=== PATIENT | female | born 1960 | race Caucasian/White ===

== ENCOUNTER → 2020-07-11 | Outpatient (REF) | payer OTHER ==
[2020-07-11 22:19] LABS: H PYLORI QUALITATIVE IgG NEGATIVE (NEGATIVE)
== END ==
LOC: M LAB REF 16:12
PROVIDERS: ATTEND Nurse Practitioner Adult Health
DX: R10.9 Unspecified abdominal pain (principal)

== ENCOUNTER 2023-04-28 08:26 | Inpatient (IN) | payer OTHER, SELFPAY ==
[~2023-04-28] VITALS: Ht 165.1 cm; Wt 65.5 kg
[2023-04-28] MEDS ORDERED: CIPR-250 PO (08:39)
[2023-04-28 09:21] LABS: BASO # 0.1 10^3/uL (0.0-0.2); BASO % 0.3 % (0.0-1.0); EOS # 0.1 10^3/uL (0.0-0.5); EOS % 0.3 % (0.0-3.0); HEMATOCRIT 38.9 % (36.0-47.0); HEMOGLOBIN 12.9 g/dl (12.0-15.5); LYMPH # 1.4 10^3/uL (1.5-5.0); LYMPH % 6.8 % (24.0-44.0); MEAN CORPUSCULAR HEMOGLOBIN 29.7 pg (27.0-33.0); MEAN CORPUSCULAR HGB CONC 33.2 g/dl (32.0-36.5); MEAN CORPUSCULAR VOLUME 89.6 fl (80.0-96.0); MONO # 1.3 10^3/uL (0.0-0.8); MONO % 6.5 % (2.0-8.0); NEUTROPHILS # 17.3 10^3/uL (1.5-8.5); NEUTROPHILS % 85.4 % (36.0-66.0); PLATELET COUNT, AUTOMATED 469 10^3/uL (150-450); RED BLOOD COUNT 4.34 10^6/uL (4.00-5.40); WHITE BLOOD COUNT 20.3 10^3/uL (4.0-10.0)
[2023-04-28 09:51] LABS: LIPASE 23 U/L (12-53)
[2023-04-28 09:53] LABS: ALBUMIN 2.5 G/DL (3.2-5.2); ALKALINE PHOSPHATASE 104 U/L (46-116); ALT/SGPT 21 U/L (7.0-40); AST/SGOT 33 U/L (<34); BILIRUBIN,DIRECT 0.1 MG/DL (<0.4); BILIRUBIN,TOTAL 0.3 MG/DL (0.3-1.2); TOTAL PROTEIN 6.4 G/DL (5.7-8.2)
[2023-04-28 10:16] LABS: RSV AMPLIFICATION NEGATIVE (NEGATIVE)
[2023-04-28 10:40] LABS: MAGNESIUM LEVEL 1.9 MG/DL (1.8-2.4)
[2023-04-28] MEDS ORDERED: ISOVUE-370 76% 100ML VIAL As Ordered ONE (10:58)
[2023-04-28] MEDS ORDERED: PIPERACILLIN/TAZOBACTAM SOD 3.375 GM in D5W MINI-BAG PLUS 50 ML IV ONE (12:05)
[2023-04-28 12:47] LABS: BLOOD UREA NITROGEN 14 MG/DL (9-23); CALCIUM LEVEL 8.7 MG/DL (8.3-10.6); CARBON DIOXIDE LEVEL 24 MMOL/L (20-31); CHLORIDE LEVEL 104 MMOL/L (98-107); CREATININE FOR GFR 0.82 MG/DL (0.55-1.30); GLOMERULAR FILTRATION RATE > 60.0 (>45); GLUCOSE, FASTING 85 MG/DL (74-106); POTASSIUM SERUM 5.2 MMOL/L (3.5-5.1); SODIUM LEVEL 138 MMOL/L (136-145)
[2023-04-28] MEDS ORDERED: MED REC IN PROGRESS XX SCH (13:25)
[2023-04-28] MEDS: LR 1,000 ML IV SCH ×2 (13:27→21:50)
[2023-04-28] MEDS ORDERED: HOME MED LIST COMPLETE! XX SCH (13:35)
[2023-04-28] MEDS ORDERED: LORazepam 2 MG TAB PO PRN (13:45)
[2023-04-28] MEDS: MULTIVITAMIN -ADULT INJECTION 10 ML, THIAMINE INJection 100 MG, FOLIC ACID 1 MG in NS 1... IV SCH (16:08)
[2023-04-28 18:05] VITALS: BP 110/68; TEMP 97.5; O2SAT 95
[2023-04-28 18:15] VITALS: BP 110/68
[2023-04-28] MEDS: PIPERACILLIN/TAZOBACTAM SOD 3.375 GM in D5W MINI-BAG PLUS 50 ML IV SCH ×2 (18:21→23:45)
[2023-04-28] MEDS: KETOROLAC 30 MG/ML 1ML VIAL IV PRN (18:22)
[2023-04-28 19:51] VITALS: BP 90/50; TEMP 98.6; O2SAT 95
[2023-04-28] MEDS ORDERED: NS 1,000 ML IV SCH (20:20)
[2023-04-28] MEDS: HEPARIN SOD (PORCINE) 5000UNITS/ML 1ML VIAL/SYRINGE SC SCH (21:50)
[2023-04-28 21:54] VITALS: BP 110/70
[2023-04-28 22:00] VITALS: BP 110/70
[2023-04-29] VITALS (8 sets, daily range): BP systolic 88–120; BP diastolic 50–72; TEMP 98.1–99.5; O2SAT 92–97
[2023-04-29] MEDS: PIPERACILLIN/TAZOBACTAM SOD 3.375 GM in D5W MINI-BAG PLUS 50 ML IV SCH ×4 (05:20→23:34)
[2023-04-29 06:14] LABS: BASO # 0.1 10^3/uL (0.0-0.2); BASO % 0.3 % (0.0-1.0); EOS # 0.2 10^3/uL (0.0-0.5); EOS % 1.6 % (0.0-3.0); HEMATOCRIT 33.3 % (36.0-47.0); LYMPH # 1.3 10^3/uL (1.5-5.0); LYMPH % 8.6 % (24.0-44.0); MEAN CORPUSCULAR VOLUME 90.7 fl (80.0-96.0); MONO # 1.2 10^3/uL (0.0-0.8); MONO % 7.7 % (2.0-8.0); NEUTROPHILS # 12.2 10^3/uL (1.5-8.5); NEUTROPHILS % 81.3 % (36.0-66.0); PLATELET COUNT, AUTOMATED 377 10^3/uL (150-450); RED BLOOD COUNT 3.67 10^6/uL (4.00-5.40)
[2023-04-29 06:30] LABS: BLOOD UREA NITROGEN 14 MG/DL (9-23); CALCIUM LEVEL 8.1 MG/DL (8.3-10.6); CARBON DIOXIDE LEVEL 24 MMOL/L (20-31); CHLORIDE LEVEL 107 MMOL/L (98-107); CREATININE FOR GFR 0.79 MG/DL (0.55-1.30); GLOMERULAR FILTRATION RATE > 60.0 (>45); GLUCOSE, FASTING 71 MG/DL (74-106); POTASSIUM SERUM 4.2 MMOL/L (3.5-5.1); SODIUM LEVEL 139 MMOL/L (136-145)
[2023-04-29] MEDS: LR 1,000 ML IV SCH ×2 (08:35→18:55)
[2023-04-29] MEDS: HEPARIN SOD (PORCINE) 5000UNITS/ML 1ML VIAL/SYRINGE SC SCH ×2 (08:35→19:28)
[2023-04-29] MEDS ORDERED: LIDOCAINE 1% MDV 20ML VIAL As Ordered ONE (11:39)
[2023-04-29] MEDS ORDERED: SIMETHICONE 80MG CHEW TAB PO PRN (13:30)
[2023-04-29] MEDS: PANTOPRAZOLE 40MG VIAL IV SCH (14:18)
[2023-04-29] MEDS: MULTIVITAMIN -ADULT INJECTION 10 ML, THIAMINE INJection 100 MG, FOLIC ACID 1 MG in NS 1... IV SCH (17:14)
[2023-04-29] MEDS: ACETAMINOPHEN TAB 650MG DOSE (2X325MG) PO PRN (19:27)
[2023-04-29] MEDS: NICOTINE 14 MG/24 HR TRANSDERMAL TD SCH (21:00)
[2023-04-29] MEDS ORDERED: NS 1,000 ML IV ONE (22:05)
[2023-04-29] MEDS: KETOROLAC 30 MG/ML 1ML VIAL IV PRN (23:30)
[2023-04-30] VITALS (13 sets, daily range): BP systolic 90–116; BP diastolic 54–72; TEMP 97.7–100.9; O2SAT 94–98
[2023-04-30] MEDS: PIPERACILLIN/TAZOBACTAM SOD 3.375 GM in D5W MINI-BAG PLUS 50 ML IV SCH ×4 (05:17→23:04)
[2023-04-30 05:44] LABS: BASO # 0.1 10^3/uL (0.0-0.2); BASO % 0.4 % (0.0-1.0); EOS # 0.2 10^3/uL (0.0-0.5); EOS % 1.4 % (0.0-3.0); HEMATOCRIT 32.1 % (36.0-47.0); HEMOGLOBIN 10.5 g/dl (12.0-15.5); LYMPH # 1.1 10^3/uL (1.5-5.0); LYMPH % 8.3 % (24.0-44.0); MEAN CORPUSCULAR HEMOGLOBIN 29.7 pg (27.0-33.0); MEAN CORPUSCULAR HGB CONC 32.7 g/dl (32.0-36.5); MEAN CORPUSCULAR VOLUME 90.7 fl (80.0-96.0); MONO # 1.1 10^3/uL (0.0-0.8); MONO % 8.1 % (2.0-8.0); NEUTROPHILS # 10.8 10^3/uL (1.5-8.5); NEUTROPHILS % 81.1 % (36.0-66.0); PLATELET COUNT, AUTOMATED 384 10^3/uL (150-450); RED BLOOD COUNT 3.54 10^6/uL (4.00-5.40); WHITE BLOOD COUNT 13.3 10^3/uL (4.0-10.0)
[2023-04-30 06:06] LABS: BLOOD UREA NITROGEN 13 MG/DL (9-23); CALCIUM LEVEL 7.9 MG/DL (8.3-10.6); CARBON DIOXIDE LEVEL 24 MMOL/L (20-31); CHLORIDE LEVEL 110 MMOL/L (98-107); CREATININE FOR GFR 0.71 MG/DL (0.55-1.30); GLOMERULAR FILTRATION RATE > 60.0 (>45); GLUCOSE, FASTING 81 MG/DL (74-106); POTASSIUM SERUM 4.1 MMOL/L (3.5-5.1); SODIUM LEVEL 140 MMOL/L (136-145)
[2023-04-30] MEDS: LR 1,000 ML IV SCH ×2 (07:13→14:34)
[2023-04-30] MEDS: HEPARIN SOD (PORCINE) 5000UNITS/ML 1ML VIAL/SYRINGE SC SCH ×2 (08:52→20:21)
[2023-04-30] MEDS: PANTOPRAZOLE 40MG VIAL IV SCH (08:52)
[2023-04-30] MEDS: ACETAMINOPHEN TAB 650MG DOSE (2X325MG) PO PRN ×2 (09:48→20:20)
[2023-04-30] MEDS: KETOROLAC 30 MG/ML 1ML VIAL IV PRN (14:56)
[2023-04-30] MEDS ORDERED: SIMETHICONE 80MG CHEW TAB PO ONE (15:00)
[2023-04-30] MEDS ORDERED: NS 1,000 ML IV ONE (15:45)
[2023-04-30] MEDS: MIDODRINE 5 MG TAB PO SCH (15:52)
[2023-04-30] MEDS ORDERED: ACETAMINOPHEN 500 MG TAB PO ONE (16:00)
[2023-04-30] MEDS: NICOTINE 14 MG/24 HR TRANSDERMAL TD SCH (20:13)
[2023-05-01] VITALS (11 sets, daily range): BP systolic 106–123; BP diastolic 52–86; TEMP 98.1–100.3; O2SAT 92–94
[2023-05-01] MEDS: ACETAMINOPHEN TAB 650MG DOSE (2X325MG) PO PRN (04:08)
[2023-05-01] MEDS: PIPERACILLIN/TAZOBACTAM SOD 3.375 GM in D5W MINI-BAG PLUS 50 ML IV SCH ×4 (05:00→23:03)
[2023-05-01 06:11] LABS: BASO # 0.1 10^3/uL (0.0-0.2); BASO % 0.4 % (0.0-1.0); EOS # 0.2 10^3/uL (0.0-0.5); EOS % 1.3 % (0.0-3.0); HEMATOCRIT 33.4 % (36.0-47.0); HEMOGLOBIN 11.1 g/dl (12.0-15.5); LYMPH # 1.4 10^3/uL (1.5-5.0); LYMPH % 10.1 % (24.0-44.0); MEAN CORPUSCULAR HEMOGLOBIN 30.3 pg (27.0-33.0); MEAN CORPUSCULAR HGB CONC 33.2 g/dl (32.0-36.5); MEAN CORPUSCULAR VOLUME 91.3 fl (80.0-96.0); MONO % 7.2 % (2.0-8.0); NEUTROPHILS # 11.3 10^3/uL (1.5-8.5); NEUTROPHILS % 80.4 % (36.0-66.0); PLATELET COUNT, AUTOMATED 433 10^3/uL (150-450); RED BLOOD COUNT 3.66 10^6/uL (4.00-5.40); WHITE BLOOD COUNT 14.1 10^3/uL (4.0-10.0)
[2023-05-01 06:38] LABS: BLOOD UREA NITROGEN 14 MG/DL (9-23); CALCIUM LEVEL 7.7 MG/DL (8.3-10.6); CARBON DIOXIDE LEVEL 24 MMOL/L (20-31); CHLORIDE LEVEL 111 MMOL/L (98-107); CREATININE FOR GFR 0.75 MG/DL (0.55-1.30); GLOMERULAR FILTRATION RATE > 60.0 (>45); GLUCOSE, FASTING 81 MG/DL (74-106); POTASSIUM SERUM 3.9 MMOL/L (3.5-5.1); SODIUM LEVEL 144 MMOL/L (136-145)
[2023-05-01] MEDS: HEPARIN SOD (PORCINE) 5000UNITS/ML 1ML VIAL/SYRINGE SC SCH ×2 (09:00→20:05)
[2023-05-01] MEDS: PANTOPRAZOLE 40MG VIAL IV SCH (09:36)
[2023-05-01] MEDS: MIDODRINE 5 MG TAB PO SCH ×3 (09:36→16:58)
[2023-05-01] MEDS: KETOROLAC 30 MG/ML 1ML VIAL IV PRN ×2 (09:37→19:00)
[2023-05-01] MEDS: ONDANSETRON 4MG 2ML VIAL IV PRN (16:05)
[2023-05-01] MEDS ORDERED: ISOVUE-370 76% 100ML VIAL As Ordered ONE (17:57)
[2023-05-01] MEDS ORDERED: NS 1,000 ML IV SCH (18:00)
[2023-05-01] MEDS: NICOTINE 14 MG/24 HR TRANSDERMAL TD SCH (20:01)
[2023-05-02] VITALS (8 sets, daily range): BP systolic 106–147; BP diastolic 55–90; TEMP 97.5–100.6; O2SAT 93–98
[2023-05-02] MEDS: PIPERACILLIN/TAZOBACTAM SOD 3.375 GM in D5W MINI-BAG PLUS 50 ML IV SCH (05:09)
[2023-05-02] MEDS: ACETAMINOPHEN TAB 650MG DOSE (2X325MG) PO PRN ×3 (05:10→20:49)
[2023-05-02 06:26] LABS: BASO # 0.1 10^3/uL (0.0-0.2); BASO % 0.5 % (0.0-1.0); EOS # 0.2 10^3/uL (0.0-0.5); EOS % 1.8 % (0.0-3.0); HEMATOCRIT 30.9 % (36.0-47.0); HEMOGLOBIN 10.3 g/dl (12.0-15.5); LYMPH # 1.3 10^3/uL (1.5-5.0); LYMPH % 10.6 % (24.0-44.0); MEAN CORPUSCULAR HEMOGLOBIN 29.9 pg (27.0-33.0); MEAN CORPUSCULAR HGB CONC 33.3 g/dl (32.0-36.5); MEAN CORPUSCULAR VOLUME 89.6 fl (80.0-96.0); MONO % 8.5 % (2.0-8.0); NEUTROPHILS # 9.4 10^3/uL (1.5-8.5); NEUTROPHILS % 78.2 % (36.0-66.0); PLATELET COUNT, AUTOMATED 440 10^3/uL (150-450); RED BLOOD COUNT 3.45 10^6/uL (4.00-5.40)
[2023-05-02 06:58] LABS: BLOOD UREA NITROGEN 11 MG/DL (9-23); CALCIUM LEVEL 7.5 MG/DL (8.3-10.6); CARBON DIOXIDE LEVEL 26 MMOL/L (20-31); CHLORIDE LEVEL 108 MMOL/L (98-107); CREATININE FOR GFR 0.74 MG/DL (0.55-1.30); GLOMERULAR FILTRATION RATE > 60.0 (>45); GLUCOSE, FASTING 103 MG/DL (74-106); POTASSIUM SERUM 3.5 MMOL/L (3.5-5.1); SODIUM LEVEL 140 MMOL/L (136-145)
[2023-05-02] MEDS: HEPARIN SOD (PORCINE) 5000UNITS/ML 1ML VIAL/SYRINGE SC SCH ×2 (08:13→20:50)
[2023-05-02] MEDS: MIDODRINE 5 MG TAB PO SCH ×3 (08:13→15:32)
[2023-05-02] MEDS: ERTAPENEM SODIUM 1 GM in NS MINI-BAG PLUS 50 ML IV SCH (08:19)
[2023-05-02] MEDS ORDERED: VITAMIN A & D OINTMENT 42.5GM TOP PRN (08:20)
[2023-05-02] MEDS: SIMETHICONE 80MG CHEW TAB PO PRN ×3 (08:59→21:44)
[2023-05-02] MEDS: ONDANSETRON 4MG 2ML VIAL IV PRN (14:18)
[2023-05-02] MEDS ORDERED: NS 1,000 ML IV ONE (14:40)
[2023-05-02 14:57] LABS: IONIZED CALCIUM 4.4 MG/DL (4.5-5.3)
[2023-05-02 15:27] LABS: ALBUMIN 1.8 G/DL (3.2-5.2); ALKALINE PHOSPHATASE 84 U/L (46-116); ALT/SGPT 17 U/L (7.0-40); AST/SGOT 14 U/L (<34); BILIRUBIN,DIRECT 0.2 MG/DL (<0.4); BILIRUBIN,TOTAL 0.3 MG/DL (0.3-1.2); BLOOD UREA NITROGEN 10 MG/DL (9-23); CARBON DIOXIDE LEVEL 26 MMOL/L (20-31); CHLORIDE LEVEL 109 MMOL/L (98-107); CREATININE FOR GFR 0.71 MG/DL (0.55-1.30); GLOMERULAR FILTRATION RATE > 60.0 (>45); GLUCOSE, FASTING 94 MG/DL (74-106); MAGNESIUM LEVEL 1.6 MG/DL (1.8-2.4); POTASSIUM SERUM 3.6 MMOL/L (3.5-5.1); SODIUM LEVEL 140 MMOL/L (136-145); TOTAL PROTEIN 5.1 G/DL (5.7-8.2)
[2023-05-02] MEDS ORDERED: MAG SULF 1GM/100ML (MAG RUN) 1 GM in IV 1 EA IV ONE (17:00)
[2023-05-02] MEDS: NICOTINE 14 MG/24 HR TRANSDERMAL TD SCH (20:43)
[2023-05-03] VITALS (8 sets, daily range): BP systolic 121–135; BP diastolic 0–85; TEMP 98.8–101.2; O2SAT 90–96
[2023-05-03] MEDS: ACETAMINOPHEN TAB 650MG DOSE (2X325MG) PO PRN ×2 (02:51→16:53)
[2023-05-03 06:20] LABS: BASO # 0.1 10^3/uL (0.0-0.2); BASO % 0.7 % (0.0-1.0); EOS # 0.2 10^3/uL (0.0-0.5); EOS % 1.7 % (0.0-3.0); HEMATOCRIT 35.2 % (36.0-47.0); HEMOGLOBIN 11.5 g/dl (12.0-15.5); LYMPH # 1.3 10^3/uL (1.5-5.0); LYMPH % 12.3 % (24.0-44.0); MEAN CORPUSCULAR HEMOGLOBIN 29.6 pg (27.0-33.0); MEAN CORPUSCULAR HGB CONC 32.7 g/dl (32.0-36.5); MEAN CORPUSCULAR VOLUME 90.7 fl (80.0-96.0); MONO # 0.8 10^3/uL (0.0-0.8); MONO % 7.1 % (2.0-8.0); NEUTROPHILS # 8.3 10^3/uL (1.5-8.5); NEUTROPHILS % 77.6 % (36.0-66.0); RED BLOOD COUNT 3.88 10^6/uL (4.00-5.40); WHITE BLOOD COUNT 10.7 10^3/uL (4.0-10.0)
[2023-05-03 06:22] LABS: PLATELET COUNT, AUTOMATED 549 10^3/uL (150-450)
[2023-05-03 06:37] LABS: BLOOD UREA NITROGEN 9 MG/DL (9-23); CALCIUM LEVEL 8.3 MG/DL (8.3-10.6); CARBON DIOXIDE LEVEL 26 MMOL/L (20-31); CHLORIDE LEVEL 107 MMOL/L (98-107); CREATININE FOR GFR 0.68 MG/DL (0.55-1.30); GLOMERULAR FILTRATION RATE > 60.0 (>45); GLUCOSE, FASTING 78 MG/DL (74-106); POTASSIUM SERUM 3.7 MMOL/L (3.5-5.1); SODIUM LEVEL 140 MMOL/L (136-145)
[2023-05-03] MEDS: HEPARIN SOD (PORCINE) 5000UNITS/ML 1ML VIAL/SYRINGE SC SCH ×2 (09:26→20:26)
[2023-05-03] MEDS: MIDODRINE 5 MG TAB PO SCH ×3 (09:27→16:53)
[2023-05-03] MEDS: LR 1,000 ML IV SCH ×2 (09:27→20:26)
[2023-05-03] MEDS: ERTAPENEM SODIUM 1 GM in NS MINI-BAG PLUS 50 ML IV SCH (09:28)
[2023-05-03] MEDS: SIMETHICONE 80MG CHEW TAB PO SCH ×4 (09:39→20:26)
[2023-05-03] MEDS ORDERED: GLUCOSE 4GM CHEW TABLET PO PRN (12:15)
[2023-05-03] MEDS ORDERED: GLUCAGON INJ 1MG VIAL SC PRN (12:15)
[2023-05-03] MEDS ORDERED: DEXTROSE 50% 50ML SYRINGE IV PRN (12:15)
[2023-05-03] MEDS: LACTOBACILLUS ACIDOPHILUS CAP (BACID) PO SCH ×3 (12:22→20:26)
[2023-05-03] MEDS: KETOROLAC 30 MG/ML 1ML VIAL IV PRN (12:33)
[2023-05-03] MEDS ORDERED: LIDOCAINE 1% MDV 20ML VIAL As Ordered ONE (14:00)
[2023-05-03] MEDS ORDERED: ONDANSETRON 4MG 2ML VIAL As Ordered ONE (14:38)
[2023-05-03] MEDS: ONDANSETRON 4MG 2ML VIAL IV PRN (14:45)
[2023-05-03] MEDS ORDERED: KETOROLAC 30 MG/ML 1ML VIAL IV ONE (15:50)
[2023-05-03] MEDS: NICOTINE 14 MG/24 HR TRANSDERMAL TD SCH (20:27)
[2023-05-03] MEDS ORDERED: ISOVUE-370 76% 100ML VIAL As Ordered ONE (21:35)
[2023-05-03] MEDS ORDERED: VANCOMYCIN HCL 750 MG, VIAL MATE ADAPTER 1 EACH in D5W 250 ML IV ONE ×2 (22:00→23:00)
[2023-05-04] VITALS (9 sets, daily range): BP systolic 112–150; BP diastolic 74–92; TEMP 97.7–102.2; O2SAT 89–97
[2023-05-04] MEDS ORDERED: VANCOMYCIN HCL 1,000 MG, VIAL MATE ADAPTER 1 EACH in D5W 250 ML IV SCH (05:00)
[2023-05-04] MEDS: ONDANSETRON 4MG 2ML VIAL IV PRN ×2 (05:30→12:20)
[2023-05-04 05:59] LABS: HEMATOCRIT 35.4 % (36.0-47.0); HEMOGLOBIN 11.6 g/dl (12.0-15.5); MEAN CORPUSCULAR HEMOGLOBIN 29.7 pg (27.0-33.0); MEAN CORPUSCULAR HGB CONC 32.8 g/dl (32.0-36.5); MEAN CORPUSCULAR VOLUME 90.5 fl (80.0-96.0); PLATELET COUNT, AUTOMATED 569 10^3/uL (150-450); RED BLOOD COUNT 3.91 10^6/uL (4.00-5.40); WHITE BLOOD COUNT 6.4 10^3/uL (4.0-10.0)
[2023-05-04 06:21] LABS: BLOOD UREA NITROGEN 10 MG/DL (9-23); CALCIUM LEVEL 7.7 MG/DL (8.3-10.6); CARBON DIOXIDE LEVEL 26 MMOL/L (20-31); CHLORIDE LEVEL 107 MMOL/L (98-107); CREATININE FOR GFR 0.66 MG/DL (0.55-1.30); GLOMERULAR FILTRATION RATE > 60.0 (>45); GLUCOSE, FASTING 120 MG/DL (74-106); POTASSIUM SERUM 4.1 MMOL/L (3.5-5.1); SODIUM LEVEL 139 MMOL/L (136-145)
[2023-05-04 06:33] LABS: ATYPICAL LYMPH 6 % (0-5); EOSINOPHILS 5 % (0-3); HYPOCHROMASIA 1+; LYMPHOCYTES 21 % (16-44); MONOCYTES 2 % (0-5); NEUTROPHILS 58 % (28-66); PLATELET ESTIMATE INCREASED (NORMAL); PROCALCITONIN 2.53 ng/ml
[2023-05-04 06:48] LABS: ERYTHROCYTE SEDIMENTATION RATE 84 mm/hr (0-30)
[2023-05-04] MEDS: ERTAPENEM SODIUM 1 GM in NS MINI-BAG PLUS 50 ML IV SCH (08:58)
[2023-05-04] MEDS: HEPARIN SOD (PORCINE) 5000UNITS/ML 1ML VIAL/SYRINGE SC SCH ×2 (09:01→20:15)
[2023-05-04] MEDS: LACTOBACILLUS ACIDOPHILUS CAP (BACID) PO SCH ×3 (09:01→20:15)
[2023-05-04] MEDS: SIMETHICONE 80MG CHEW TAB PO SCH ×4 (09:01→20:15)
[2023-05-04] MEDS ORDERED: KETOROLAC 30 MG/ML 1ML VIAL IV ONE (10:40)
[2023-05-04] MEDS ORDERED: NS 1,000 ML IV SCH (10:40)
[2023-05-04] MEDS: ACETAMINOPHEN TAB 650MG DOSE (2X325MG) PO SCH ×3 (12:00→22:40)
[2023-05-04] MEDS ORDERED: DIGOXIN INJ 0.5 MG/2 ML AMP IV ONE (13:20)
[2023-05-04] MEDS ORDERED: METOPROLOL 5 MG/5 ML VIAL IV SCH (13:25)
[2023-05-04] MEDS ORDERED: VANCOMYCIN HCL 750 MG, VIAL MATE ADAPTER 1 EACH in D5W 250 ML IV ONE (14:00)
[2023-05-04 14:30] LABS: CK-MB VALUE MASS 3.2 NG/ML (<3.6); MAGNESIUM LEVEL 1.8 MG/DL (1.8-2.4); MB/CK RELATIVE INDEX 3.47 (< OR =4); PHOSPHORUS LEVEL 3.1 MG/DL (2.4-5.1)
[2023-05-04 14:32] LABS: THYROID STIMULATING HORMONE 7.757 uIU/ML (0.55-4.78); THYROXINE (T4) 4.7 UG/DL (4.5-10.9)
[2023-05-04 14:33] LABS: FREE THYROXINE INDEX 2.4 % (1.3-4.8); T UPTAKE 51.6 % (22.5-37.0)
[2023-05-04] MEDS ORDERED: FUROSEMIDE 40MG/4ML VIAL IV ONE (16:00)
[2023-05-04] MEDS ORDERED: ISOVUE-370 76% 100ML VIAL As Ordered ONE (17:03)
[2023-05-04] MEDS: INSULIN LISPRO (NovoLOG) PER UNIT SC SCH ×2 (18:00→23:51)
[2023-05-04] MEDS ORDERED: AMINO AC/ELECTROLYTE/DEX/CALC 1,000 ML IV SCH (18:00)
[2023-05-04] MEDS ORDERED: FAT EMULSION IV 250 ML IV ONE (18:00)
[2023-05-04] MEDS: NICOTINE 14 MG/24 HR TRANSDERMAL TD SCH (20:15)
[2023-05-04 22:12] LABS: CK-MB VALUE MASS 5.3 NG/ML (<3.6)
[2023-05-04 22:16] LABS: MB/CK RELATIVE INDEX 1.42 (< OR =4)
[2023-05-04] MEDS: VANCOMYCIN HCL 750 MG, VIAL MATE ADAPTER 1 EACH in D5W 250 ML IV SCH (22:16)
[2023-05-05] VITALS (9 sets, daily range): BP systolic 101–133; BP diastolic 63–89; TEMP 98.9–100.4; O2SAT 83–97
[2023-05-05 04:06] LABS: CK-MB VALUE MASS 2.4 NG/ML (<3.6)
[2023-05-05 04:28] LABS: MB/CK RELATIVE INDEX 4.61 (< OR =4)
[2023-05-05] MEDS: ACETAMINOPHEN TAB 650MG DOSE (2X325MG) PO SCH ×4 (05:00→23:05)
[2023-05-05] MEDS: VANCOMYCIN HCL 750 MG, VIAL MATE ADAPTER 1 EACH in D5W 250 ML IV SCH ×3 (05:04→21:11)
[2023-05-05] MEDS: INSULIN LISPRO (NovoLOG) PER UNIT SC SCH ×4 (05:12→23:05)
[2023-05-05 06:23] LABS: BASO % 0.4 % (0.0-1.0); EOS # 0.3 10^3/uL (0.0-0.5); EOS % 3.3 % (0.0-3.0); HEMOGLOBIN 9.7 g/dl (12.0-15.5); LYMPH # 1.2 10^3/uL (1.5-5.0); LYMPH % 15.2 % (24.0-44.0); MEAN CORPUSCULAR HEMOGLOBIN 29.9 pg (27.0-33.0); MEAN CORPUSCULAR HGB CONC 33.4 g/dl (32.0-36.5); MEAN CORPUSCULAR VOLUME 89.5 fl (80.0-96.0); MONO # 0.9 10^3/uL (0.0-0.8); MONO % 10.7 % (2.0-8.0); NEUTROPHILS # 5.6 10^3/uL (1.5-8.5); RED BLOOD COUNT 3.24 10^6/uL (4.00-5.40)
[2023-05-05 06:25] LABS: PLATELET COUNT, AUTOMATED 430 10^3/uL (150-450)
[2023-05-05 06:52] LABS: BLOOD UREA NITROGEN 13 MG/DL (9-23); CALCIUM LEVEL 7.6 MG/DL (8.3-10.6); CARBON DIOXIDE LEVEL 30 MMOL/L (20-31); CHLORIDE LEVEL 105 MMOL/L (98-107); CREATININE FOR GFR 0.56 MG/DL (0.55-1.30); GLOMERULAR FILTRATION RATE > 60.0 (>45); GLUCOSE, FASTING 120 MG/DL (74-106); POTASSIUM SERUM 3.2 MMOL/L (3.5-5.1); SODIUM LEVEL 141 MMOL/L (136-145)
[2023-05-05 07:38] LABS: VANCOMYCIN LEVEL TROUGH 25.8 UG/ML (10.0-20.0)
[2023-05-05] MEDS: LACTOBACILLUS ACIDOPHILUS CAP (BACID) PO SCH ×3 (07:50→21:10)
[2023-05-05] MEDS: SIMETHICONE 80MG CHEW TAB PO SCH ×4 (07:51→21:10)
[2023-05-05] MEDS: ERTAPENEM SODIUM 1 GM in NS MINI-BAG PLUS 50 ML IV SCH (08:31)
[2023-05-05] MEDS: HEPARIN SOD (PORCINE) 5000UNITS/ML 1ML VIAL/SYRINGE SC SCH ×2 (08:31→21:14)
[2023-05-05 09:21] LABS: MB/CK RELATIVE INDEX 2.17 (< OR =4)
[2023-05-05 11:54] LABS: MAGNESIUM LEVEL 1.9 MG/DL (1.8-2.4)
[2023-05-05] MEDS ORDERED: MAG SULF 1GM/100ML (MAG RUN) 1 GM in IV 1 EA IV ONE (12:00)
[2023-05-05] MEDS: KCL 10MEQ/100ML SWI (KRUN) 10 MEQ in IV 1 EA IV SCH ×3 (12:09→15:40)
[2023-05-05 16:06] LABS: CK-MB VALUE MASS < 1.0 NG/ML (<3.6)
[2023-05-05 16:12] LABS: CPK CREATINE PHOSPHOKINASE 53 U/L (34-145); MB/CK RELATIVE INDEX 1.88 (< OR =4)
[2023-05-05] MEDS ORDERED: AMINO AC/ELECTROLYTE/DEX/CALC 2,000 ML IV SCH (18:00)
[2023-05-05] MEDS ORDERED: FAT EMULSION IV 250 ML IV ONE (18:00)
[2023-05-05] MEDS: NICOTINE 14 MG/24 HR TRANSDERMAL TD SCH (21:00)
[2023-05-06] MEDS: VANCOMYCIN HCL 750 MG, VIAL MATE ADAPTER 1 EACH in D5W 250 ML IV SCH ×3 (05:12→21:40)
[2023-05-06] MEDS: ACETAMINOPHEN TAB 650MG DOSE (2X325MG) PO SCH ×5 (05:13→23:03)
[2023-05-06] MEDS: INSULIN LISPRO (NovoLOG) PER UNIT SC SCH ×3 (05:18→18:00)
[2023-05-06 06:00] VITALS: BP 132/83; TEMP 98.8; O2SAT 95
[2023-05-06] MEDS: SIMETHICONE 80MG CHEW TAB PO SCH ×4 (08:37→21:40)
[2023-05-06] MEDS: HEPARIN SOD (PORCINE) 5000UNITS/ML 1ML VIAL/SYRINGE SC SCH ×2 (08:37→21:00)
[2023-05-06] MEDS: ERTAPENEM SODIUM 1 GM in NS MINI-BAG PLUS 50 ML IV SCH (08:37)
[2023-05-06] MEDS: LACTOBACILLUS ACIDOPHILUS CAP (BACID) PO SCH ×3 (08:37→21:40)
[2023-05-06 08:44] VITALS: O2SAT 95
[2023-05-06 11:49] LABS: IONIZED CALCIUM 4.2 MG/DL (4.5-5.3)
[2023-05-06 11:50] LABS: HEMATOCRIT 30.2 % (36.0-47.0); MEAN CORPUSCULAR HEMOGLOBIN 29.8 pg (27.0-33.0); MEAN CORPUSCULAR HGB CONC 33.1 g/dl (32.0-36.5); MEAN CORPUSCULAR VOLUME 89.9 fl (80.0-96.0); PLATELET COUNT, AUTOMATED 394 10^3/uL (150-450); RED BLOOD COUNT 3.36 10^6/uL (4.00-5.40); WHITE BLOOD COUNT 6.9 10^3/uL (4.0-10.0)
[2023-05-06 12:14] LABS: ALBUMIN 1.4 G/DL (3.2-5.2); ALKALINE PHOSPHATASE 72 U/L (46-116); ALT/SGPT 12 U/L (7.0-40); AST/SGOT 18 U/L (<34); BILIRUBIN,TOTAL 0.2 MG/DL (0.3-1.2); BLOOD UREA NITROGEN 10 MG/DL (9-23); CALCIUM LEVEL 7.7 MG/DL (8.3-10.6); CARBON DIOXIDE LEVEL 32 MMOL/L (20-31); CHLORIDE LEVEL 107 MMOL/L (98-107); CREATININE FOR GFR 0.55 MG/DL (0.55-1.30); GLOMERULAR FILTRATION RATE > 60.0 (>45); GLUCOSE, FASTING 99 MG/DL (74-106); PHOSPHORUS LEVEL 3.4 MG/DL (2.4-5.1); POTASSIUM SERUM 3.4 MMOL/L (3.5-5.1); SODIUM LEVEL 143 MMOL/L (136-145); TOTAL PROTEIN 4.6 G/DL (5.7-8.2)
[2023-05-06 12:21] LABS: ATYPICAL LYMPH 3 % (0-5); EOSINOPHILS 1 % (0-3); LYMPHOCYTES 19 % (16-44); MONOCYTES 3 % (0-5); NEUTROPHILS 72 % (28-66)
[2023-05-06 12:22] LABS: PLATELET ESTIMATE INCREASED (NORMAL)
[2023-05-06 12:23] LABS: HYPOCHROMASIA 1+
[2023-05-06] MEDS ORDERED: KCL 10MEQ/100ML SWI (KRUN) 10 MEQ in IV 1 EA IV ONE (12:35)
[2023-05-06 13:05] VITALS: O2SAT 93
[2023-05-06 14:00] VITALS: BP 139/88; TEMP 99.5; O2SAT 91
[2023-05-06] MEDS ORDERED: POTASSIUM PHOSPHATE INJ 30 MMOL in D5W 500 ML IV ONE (15:00)
[2023-05-06] MEDS ORDERED: MULTIVITAMIN -ADULT INJECTION 10 ML, ZINC/COPPER/MANGANESE/SELENIUM 1 ML in AMINO AC/EL... IV SCH (18:00)
[2023-05-06] MEDS ORDERED: FAT EMULSION IV 250 ML IV ONE (18:00)
[2023-05-06] MEDS: NICOTINE 14 MG/24 HR TRANSDERMAL TD SCH (21:00)
[2023-05-06 22:00] VITALS: BP 146/94; TEMP 99.2; O2SAT 91
[2023-05-06 23:45] VITALS: O2SAT 84
[2023-05-07] VITALS (11 sets, daily range): BP systolic 138–140; BP diastolic 88–92; TEMP 97.2–100.6; O2SAT 87–92
[2023-05-07] MEDS: INSULIN LISPRO (NovoLOG) PER UNIT SC SCH ×4 (00:43→17:51)
[2023-05-07] MEDS: VANCOMYCIN HCL 750 MG, VIAL MATE ADAPTER 1 EACH in D5W 250 ML IV SCH ×3 (05:49→22:02)
[2023-05-07] MEDS: ACETAMINOPHEN TAB 650MG DOSE (2X325MG) PO SCH ×3 (05:50→18:48)
[2023-05-07 06:58] LABS: BASO % 0.6 % (0.0-1.0); EOS # 0.2 10^3/uL (0.0-0.5); EOS % 3.4 % (0.0-3.0); HEMATOCRIT 29.7 % (36.0-47.0); HEMOGLOBIN 9.7 g/dl (12.0-15.5); LYMPH # 1.2 10^3/uL (1.5-5.0); LYMPH % 16.5 % (24.0-44.0); MEAN CORPUSCULAR HEMOGLOBIN 29.6 pg (27.0-33.0); MEAN CORPUSCULAR HGB CONC 32.7 g/dl (32.0-36.5); MEAN CORPUSCULAR VOLUME 90.5 fl (80.0-96.0); MONO # 0.8 10^3/uL (0.0-0.8); MONO % 11.6 % (2.0-8.0); NEUTROPHILS # 4.7 10^3/uL (1.5-8.5); NEUTROPHILS % 67.5 % (36.0-66.0); PLATELET COUNT, AUTOMATED 385 10^3/uL (150-450); RED BLOOD COUNT 3.28 10^6/uL (4.00-5.40)
[2023-05-07 07:28] LABS: BLOOD UREA NITROGEN 9 MG/DL (9-23); CALCIUM LEVEL 7.3 MG/DL (8.3-10.6); CARBON DIOXIDE LEVEL 30 MMOL/L (20-31); CHLORIDE LEVEL 105 MMOL/L (98-107); CREATININE FOR GFR 0.49 MG/DL (0.55-1.30); GLOMERULAR FILTRATION RATE > 60.0 (>45); GLUCOSE, FASTING 152 MG/DL (74-106); POTASSIUM SERUM 3.5 MMOL/L (3.5-5.1); SODIUM LEVEL 140 MMOL/L (136-145)
[2023-05-07] MEDS: ERTAPENEM SODIUM 1 GM in NS MINI-BAG PLUS 50 ML IV SCH (08:16)
[2023-05-07] MEDS: SIMETHICONE 80MG CHEW TAB PO SCH ×4 (08:16→20:51)
[2023-05-07] MEDS: HEPARIN SOD (PORCINE) 5000UNITS/ML 1ML VIAL/SYRINGE SC SCH ×2 (08:16→20:05)
[2023-05-07] MEDS: LACTOBACILLUS ACIDOPHILUS CAP (BACID) PO SCH ×3 (08:16→20:51)
[2023-05-07] MEDS ORDERED: ISOVUE-370 76% 100ML VIAL As Ordered ONE (08:44)
[2023-05-07] MEDS ORDERED: FUROSEMIDE 20MG/2ML VIAL IV ONE (11:40)
[2023-05-07] MEDS ORDERED: FUROSEMIDE 40MG/4ML VIAL IV ONE (13:55)
[2023-05-07 14:47] LABS: CK-MB VALUE MASS < 1.0 NG/ML (<3.6)
[2023-05-07 14:49] LABS: CPK CREATINE PHOSPHOKINASE 30 U/L (34-145); MB/CK RELATIVE INDEX 3.33 (< OR =4)
[2023-05-07] MEDS ORDERED: FAT EMULSION IV 250 ML IV ONE (18:00)
[2023-05-07] MEDS ORDERED: AMINO AC/ELECTROLYTE/DEX/CALC 2,000 ML IV SCH (18:00)
[2023-05-07] MEDS: NICOTINE 14 MG/24 HR TRANSDERMAL TD SCH (20:05)
[2023-05-07 21:38] LABS: HEMOGLOBIN 10.1 g/dl (12.0-15.5); MEAN CORPUSCULAR HEMOGLOBIN 29.5 pg (27.0-33.0); MEAN CORPUSCULAR HGB CONC 33.7 g/dl (32.0-36.5); MEAN CORPUSCULAR VOLUME 87.7 fl (80.0-96.0); PLATELET COUNT, AUTOMATED 428 10^3/uL (150-450); RED BLOOD COUNT 3.42 10^6/uL (4.00-5.40); WHITE BLOOD COUNT 8.5 10^3/uL (4.0-10.0)
[2023-05-07 22:09] LABS: BLOOD UREA NITROGEN 12 MG/DL (9-23); CALCIUM LEVEL 7.4 MG/DL (8.3-10.6); CARBON DIOXIDE LEVEL 32 MMOL/L (20-31); CHLORIDE LEVEL 102 MMOL/L (98-107); CREATININE FOR GFR 0.53 MG/DL (0.55-1.30); GLOMERULAR FILTRATION RATE > 60.0 (>45); GLUCOSE, FASTING 131 MG/DL (74-106); MAGNESIUM LEVEL 1.8 MG/DL (1.8-2.4); POTASSIUM SERUM 3.2 MMOL/L (3.5-5.1); SODIUM LEVEL 140 MMOL/L (136-145)
[2023-05-07 22:21] LABS: PROCALCITONIN 0.47 ng/ml
[2023-05-07] MEDS: KCL 10MEQ/100ML SWI (KRUN) 10 MEQ in IV 1 EA IV SCH (23:09)
[2023-05-08] MEDS: KCL 10MEQ/100ML SWI (KRUN) 10 MEQ in IV 1 EA IV SCH (00:18)
[2023-05-08] MEDS: INSULIN LISPRO (NovoLOG) PER UNIT SC SCH ×4 (00:58→17:41)
[2023-05-08] MEDS: ONDANSETRON 4MG 2ML VIAL IV PRN ×2 (02:42→12:55)
[2023-05-08 05:17] VITALS: BP 132/81; TEMP 97.2; O2SAT 94
[2023-05-08] MEDS: VANCOMYCIN HCL 750 MG, VIAL MATE ADAPTER 1 EACH in D5W 250 ML IV SCH ×2 (06:06→14:54)
[2023-05-08] MEDS: ACETAMINOPHEN TAB 650MG DOSE (2X325MG) PO SCH ×4 (06:06→17:40)
[2023-05-08 06:37] LABS: HEMATOCRIT 31.3 % (36.0-47.0); HEMOGLOBIN 10.2 g/dl (12.0-15.5); MEAN CORPUSCULAR HEMOGLOBIN 28.9 pg (27.0-33.0); MEAN CORPUSCULAR HGB CONC 32.6 g/dl (32.0-36.5); MEAN CORPUSCULAR VOLUME 88.7 fl (80.0-96.0); PLATELET COUNT, AUTOMATED 434 10^3/uL (150-450); RED BLOOD COUNT 3.53 10^6/uL (4.00-5.40); WHITE BLOOD COUNT 7.5 10^3/uL (4.0-10.0)
[2023-05-08 07:01] LABS: ALBUMIN 1.5 G/DL (3.2-5.2); ALKALINE PHOSPHATASE 69 U/L (46-116); ALT/SGPT 11 U/L (7.0-40); AST/SGOT 16 U/L (<34); BILIRUBIN,TOTAL 0.2 MG/DL (0.3-1.2); BLOOD UREA NITROGEN 12 MG/DL (9-23); CALCIUM LEVEL 7.8 MG/DL (8.3-10.6); CARBON DIOXIDE LEVEL 30 MMOL/L (20-31); CHLORIDE LEVEL 103 MMOL/L (98-107); CREATININE FOR GFR 0.51 MG/DL (0.55-1.30); GLOMERULAR FILTRATION RATE > 60.0 (>45); GLUCOSE, FASTING 131 MG/DL (74-106); POTASSIUM SERUM 3.5 MMOL/L (3.5-5.1); SODIUM LEVEL 140 MMOL/L (136-145); TOTAL PROTEIN 4.9 G/DL (5.7-8.2)
[2023-05-08 07:28] LABS: ATYPICAL LYMPH 5 % (0-5); EOSINOPHILS 3 % (0-3); LYMPHOCYTES 12 % (16-44); MONOCYTES 13 % (0-5); NEUTROPHILS 61 % (28-66)
[2023-05-08 07:29] LABS: PLATELET ESTIMATE INCREASED (NORMAL); POLYCHROMASIA 1+
[2023-05-08] MEDS: SIMETHICONE 80MG CHEW TAB PO SCH ×4 (08:38→20:27)
[2023-05-08] MEDS: LACTOBACILLUS ACIDOPHILUS CAP (BACID) PO SCH ×3 (08:38→20:27)
[2023-05-08] MEDS: ERTAPENEM SODIUM 1 GM in NS MINI-BAG PLUS 50 ML IV SCH (08:38)
[2023-05-08] MEDS: HEPARIN SOD (PORCINE) 5000UNITS/ML 1ML VIAL/SYRINGE SC SCH ×2 (08:38→20:26)
[2023-05-08] MEDS ORDERED: FUROSEMIDE 40MG/4ML VIAL IV ONE (12:00)
[2023-05-08 14:00] VITALS: BP 135/90; TEMP 100.1; O2SAT 91
[2023-05-08] MEDS ORDERED: MULTIVITAMIN -ADULT INJECTION 10 ML, ZINC/COPPER/MANGANESE/SELENIUM 1 ML in AMINO AC/EL... IV SCH (18:00)
[2023-05-08] MEDS ORDERED: FAT EMULSION IV 250 ML IV ONE (18:00)
[2023-05-08 18:54] VITALS: BP 136/90; TEMP 99.6; O2SAT 95
[2023-05-08] MEDS: NICOTINE 14 MG/24 HR TRANSDERMAL TD SCH (20:26)
[2023-05-08] MEDS: traZODone 50 MG TAB PO PRN (20:27)
[2023-05-08 21:40] VITALS: BP 128/76; TEMP 99.1; O2SAT 93
[2023-05-09] MEDS: INSULIN LISPRO (NovoLOG) PER UNIT SC SCH ×5 (00:19→23:54)
[2023-05-09] MEDS: ACETAMINOPHEN TAB 650MG DOSE (2X325MG) PO SCH ×5 (00:19→23:54)
[2023-05-09 06:00] VITALS: BP 143/97; TEMP 97.5; O2SAT 92
[2023-05-09 06:24] LABS: HEMATOCRIT 35.5 % (36.0-47.0); HEMOGLOBIN 11.6 g/dl (12.0-15.5); MEAN CORPUSCULAR HGB CONC 32.7 g/dl (32.0-36.5); MEAN CORPUSCULAR VOLUME 88.8 fl (80.0-96.0); PLATELET COUNT, AUTOMATED 470 10^3/uL (150-450); WHITE BLOOD COUNT 6.8 10^3/uL (4.0-10.0)
[2023-05-09 06:42] LABS: BLOOD UREA NITROGEN 14 MG/DL (9-23); CALCIUM LEVEL 8.3 MG/DL (8.3-10.6); CARBON DIOXIDE LEVEL 30 MMOL/L (20-31); CHLORIDE LEVEL 102 MMOL/L (98-107); CREATININE FOR GFR 0.53 MG/DL (0.55-1.30); GLOMERULAR FILTRATION RATE > 60.0 (>45); GLUCOSE, FASTING 133 MG/DL (74-106); SODIUM LEVEL 138 MMOL/L (136-145)
[2023-05-09 06:45] LABS: ALBUMIN 1.8 G/DL (3.2-5.2); ALKALINE PHOSPHATASE 72 U/L (46-116); ALT/SGPT < 9 U/L (7.0-40); AST/SGOT 16 U/L (<34); BILIRUBIN,TOTAL 0.2 MG/DL (0.3-1.2); BLOOD UREA NITROGEN 13 MG/DL (9-23); CALCIUM LEVEL 8.1 MG/DL (8.3-10.6); CARBON DIOXIDE LEVEL 29 MMOL/L (20-31); CHLORIDE LEVEL 103 MMOL/L (98-107); CREATININE FOR GFR 0.54 MG/DL (0.55-1.30); GLOMERULAR FILTRATION RATE > 60.0 (>45); GLUCOSE, FASTING 133 MG/DL (74-106); POTASSIUM SERUM 3.9 MMOL/L (3.5-5.1); SODIUM LEVEL 138 MMOL/L (136-145); TOTAL PROTEIN 5.4 G/DL (5.7-8.2)
[2023-05-09 07:18] LABS: ATYPICAL LYMPH 3 % (0-5); EOSINOPHILS 4 % (0-3); LYMPHOCYTES 23 % (16-44); MONOCYTES 12 % (0-5); NEUTROPHILS 49 % (28-66); PLATELET ESTIMATE INCREASED (NORMAL); POLYCHROMASIA 1+
[2023-05-09] MEDS: HEPARIN SOD (PORCINE) 5000UNITS/ML 1ML VIAL/SYRINGE SC SCH ×2 (09:27→20:58)
[2023-05-09] MEDS: LACTOBACILLUS ACIDOPHILUS CAP (BACID) PO SCH ×3 (09:28→20:57)
[2023-05-09] MEDS: SIMETHICONE 80MG CHEW TAB PO SCH ×4 (09:28→20:57)
[2023-05-09] MEDS: ERTAPENEM SODIUM 1 GM in NS MINI-BAG PLUS 50 ML IV SCH (09:28)
[2023-05-09] MEDS: PANTOPRAZOLE 40MG TAB (PROTONIX) PO SCH (09:28)
[2023-05-09] MEDS: SODIUM CHLORIDE 0.9% INJ 10 ML SYR IV SCH ×2 (11:17→18:28)
[2023-05-09 14:00] VITALS: BP 130/90; TEMP 97.3; O2SAT 92
[2023-05-09] MEDS ORDERED: AMINO AC/ELECTROLYTE/DEX/CALC 2,000 ML IV SCH (18:00)
[2023-05-09] MEDS ORDERED: FAT EMULSION IV 250 ML IV ONE (18:00)
[2023-05-09] MEDS: NICOTINE 14 MG/24 HR TRANSDERMAL TD SCH (20:58)
[2023-05-09 21:27] VITALS: BP 140/96; TEMP 98.1; O2SAT 93
[2023-05-10 06:00] VITALS: BP 140/98; TEMP 97.9; O2SAT 93
[2023-05-10] MEDS: ACETAMINOPHEN TAB 650MG DOSE (2X325MG) PO SCH ×5 (06:00→23:58)
[2023-05-10] MEDS: INSULIN LISPRO (NovoLOG) PER UNIT SC SCH ×4 (06:01→23:59)
[2023-05-10] MEDS: SODIUM CHLORIDE 0.9% INJ 10 ML SYR IV SCH ×2 (06:01→17:59)
[2023-05-10 06:02] LABS: HEMATOCRIT 34.1 % (36.0-47.0); HEMOGLOBIN 11.2 g/dl (12.0-15.5); MEAN CORPUSCULAR HEMOGLOBIN 28.9 pg (27.0-33.0); MEAN CORPUSCULAR HGB CONC 32.8 g/dl (32.0-36.5); MEAN CORPUSCULAR VOLUME 88.1 fl (80.0-96.0); PLATELET COUNT, AUTOMATED 467 10^3/uL (150-450); RED BLOOD COUNT 3.87 10^6/uL (4.00-5.40)
[2023-05-10 06:27] LABS: BLOOD UREA NITROGEN 16 MG/DL (9-23); CARBON DIOXIDE LEVEL 27 MMOL/L (20-31); CHLORIDE LEVEL 103 MMOL/L (98-107); CREATININE FOR GFR 0.52 MG/DL (0.55-1.30); GLOMERULAR FILTRATION RATE > 60.0 (>45); GLUCOSE, FASTING 120 MG/DL (74-106); POTASSIUM SERUM 4.1 MMOL/L (3.5-5.1); SODIUM LEVEL 137 MMOL/L (136-145)
[2023-05-10 06:36] LABS: ATYPICAL LYMPH 6 % (0-5); BASOPHILS 1 % (0-1); EOSINOPHILS 4 % (0-3); LYMPHOCYTES 22 % (16-44); MONOCYTES 10 % (0-5); NEUTROPHILS 52 % (28-66); PLATELET ESTIMATE INCREASED (NORMAL); POLYCHROMASIA 1+
[2023-05-10 06:37] LABS: TOXIC VACUOLATION 1+
[2023-05-10] MEDS: PANTOPRAZOLE 40MG TAB (PROTONIX) PO SCH (08:51)
[2023-05-10] MEDS: SIMETHICONE 80MG CHEW TAB PO SCH ×5 (08:51→20:17)
[2023-05-10] MEDS: LACTOBACILLUS ACIDOPHILUS CAP (BACID) PO SCH ×4 (08:51→20:17)
[2023-05-10] MEDS: HEPARIN SOD (PORCINE) 5000UNITS/ML 1ML VIAL/SYRINGE SC SCH ×2 (08:51→20:14)
[2023-05-10] MEDS: SODIUM CHLORIDE 0.9% INJ 10 ML SYR IV PRN ×2 (08:52→23:52)
[2023-05-10] MEDS: ERTAPENEM SODIUM 1 GM in NS MINI-BAG PLUS 50 ML IV SCH (08:52)
[2023-05-10] MEDS: FUROSEMIDE 40MG/4ML VIAL IV SCH ×2 (12:13→20:17)
[2023-05-10 14:00] VITALS: BP 137/94; TEMP 97.9; O2SAT 94
[2023-05-10] MEDS ORDERED: guaiFENesin ER TABLET 600 MG TAB PO SCH (17:40)
[2023-05-10] MEDS ORDERED: FAT EMULSION IV 250 ML IV ONE (18:00)
[2023-05-10] MEDS ORDERED: MULTIVITAMIN -ADULT INJECTION 10 ML, ZINC/COPPER/MANGANESE/SELENIUM 1 ML in AMINO AC/EL... IV SCH (18:00)
[2023-05-10 18:40] VITALS: BP 125/88; TEMP 97.9; O2SAT 93
[2023-05-10] MEDS: NICOTINE 14 MG/24 HR TRANSDERMAL TD SCH (20:14)
[2023-05-10] MEDS: guaiFENesin ER TABLET 600 MG TAB PO SCH (20:16)
[2023-05-10 20:18] VITALS: BP 122/86; TEMP 97.3; O2SAT 93
[2023-05-10] MEDS: ONDANSETRON 4MG 2ML VIAL IV PRN (23:51)
[2023-05-11] MEDS ORDERED: METOCLOPRAMIDE INJ 10MG/2ML VIAL IV ONE (03:55)
[2023-05-11] MEDS: SODIUM CHLORIDE 0.9% INJ 10 ML SYR IV SCH ×2 (04:13→18:30)
[2023-05-11 05:11] VITALS: BP 120/76; TEMP 97.3; O2SAT 94
[2023-05-11] MEDS: ACETAMINOPHEN TAB 650MG DOSE (2X325MG) PO SCH ×3 (05:13→18:29)
[2023-05-11] MEDS: INSULIN LISPRO (NovoLOG) PER UNIT SC SCH ×3 (05:13→17:19)
[2023-05-11 06:01] LABS: BASO # 0.1 10^3/uL (0.0-0.2); BASO % 0.8 % (0.0-1.0); EOS # 0.2 10^3/uL (0.0-0.5); HEMATOCRIT 33.9 % (36.0-47.0); HEMOGLOBIN 11.3 g/dl (12.0-15.5); LYMPH # 1.5 10^3/uL (1.5-5.0); LYMPH % 18.6 % (24.0-44.0); MEAN CORPUSCULAR HEMOGLOBIN 29.4 pg (27.0-33.0); MEAN CORPUSCULAR HGB CONC 33.3 g/dl (32.0-36.5); MEAN CORPUSCULAR VOLUME 88.1 fl (80.0-96.0); MONO % 12.5 % (2.0-8.0); NEUTROPHILS # 5.2 10^3/uL (1.5-8.5); NEUTROPHILS % 64.6 % (36.0-66.0); PLATELET COUNT, AUTOMATED 452 10^3/uL (150-450); RED BLOOD COUNT 3.85 10^6/uL (4.00-5.40)
[2023-05-11] MEDS: ERTAPENEM SODIUM 1 GM in NS MINI-BAG PLUS 50 ML IV SCH (08:23)
[2023-05-11] MEDS: HEPARIN SOD (PORCINE) 5000UNITS/ML 1ML VIAL/SYRINGE SC SCH ×2 (08:23→20:58)
[2023-05-11] MEDS: FUROSEMIDE 40MG/4ML VIAL IV SCH ×2 (08:23→16:29)
[2023-05-11] MEDS: PANTOPRAZOLE 40MG TAB (PROTONIX) PO SCH (08:24)
[2023-05-11] MEDS: SIMETHICONE 80MG CHEW TAB PO SCH ×4 (08:24→20:58)
[2023-05-11] MEDS: LACTOBACILLUS ACIDOPHILUS CAP (BACID) PO SCH ×3 (08:24→20:58)
[2023-05-11] MEDS: guaiFENesin ER TABLET 600 MG TAB PO SCH ×2 (08:24→20:58)
[2023-05-11] MEDS: BISACODYL 10MG SUPP PR SCH ×4 (08:24→20:58)
[2023-05-11] MEDS: DICYCLOMINE 10 MG CAP PO SCH ×3 (08:29→20:58)
[2023-05-11 08:38] LABS: BLOOD UREA NITROGEN 24 MG/DL (9-23); CALCIUM LEVEL 7.7 MG/DL (8.3-10.6); CARBON DIOXIDE LEVEL 29 MMOL/L (20-31); CHLORIDE LEVEL 100 MMOL/L (98-107); CREATININE FOR GFR 0.58 MG/DL (0.55-1.30); GLOMERULAR FILTRATION RATE > 60.0 (>45); GLUCOSE, FASTING 138 MG/DL (74-106); POTASSIUM SERUM 3.8 MMOL/L (3.5-5.1); SODIUM LEVEL 135 MMOL/L (136-145)
[2023-05-11 14:00] VITALS: BP 122/87; TEMP 98.4; O2SAT 98
[2023-05-11] MEDS ORDERED: FAT EMULSION IV 250 ML IV ONE (18:00)
[2023-05-11] MEDS ORDERED: AMINO AC/ELECTROLYTE/DEX/CALC 2,000 ML IV SCH (18:00)
[2023-05-11] MEDS: CHLORASEPTIC SPRAY MT PRN ×2 (18:27→21:04)
[2023-05-11 20:07] VITALS: BP 122/86; TEMP 97.7; O2SAT 94
[2023-05-11] MEDS: NICOTINE 14 MG/24 HR TRANSDERMAL TD SCH (20:59)
[2023-05-11] MEDS: traZODone 50 MG TAB PO PRN (21:08)
[2023-05-12] MEDS: INSULIN LISPRO (NovoLOG) PER UNIT SC SCH ×4 (00:50→17:07)
[2023-05-12] MEDS: ACETAMINOPHEN TAB 650MG DOSE (2X325MG) PO SCH ×5 (06:00→17:24)
[2023-05-12 06:14] LABS: BASO # 0.1 10^3/uL (0.0-0.2); EOS # 0.3 10^3/uL (0.0-0.5); EOS % 4.5 % (0.0-3.0); HEMATOCRIT 31.9 % (36.0-47.0); HEMOGLOBIN 10.6 g/dl (12.0-15.5); LYMPH # 1.5 10^3/uL (1.5-5.0); LYMPH % 22.9 % (24.0-44.0); MEAN CORPUSCULAR HEMOGLOBIN 29.5 pg (27.0-33.0); MEAN CORPUSCULAR HGB CONC 33.2 g/dl (32.0-36.5); MEAN CORPUSCULAR VOLUME 88.9 fl (80.0-96.0); MONO # 0.9 10^3/uL (0.0-0.8); MONO % 14.1 % (2.0-8.0); NEUTROPHILS # 3.8 10^3/uL (1.5-8.5); NEUTROPHILS % 56.9 % (36.0-66.0); PLATELET COUNT, AUTOMATED 425 10^3/uL (150-450); RED BLOOD COUNT 3.59 10^6/uL (4.00-5.40); WHITE BLOOD COUNT 6.7 10^3/uL (4.0-10.0)
[2023-05-12] MEDS: SODIUM CHLORIDE 0.9% INJ 10 ML SYR IV SCH ×2 (06:16→17:26)
[2023-05-12] MEDS: CHLORASEPTIC SPRAY MT PRN (06:18)
[2023-05-12 06:23] VITALS: BP 120/78; TEMP 97.9; O2SAT 93
[2023-05-12 06:42] LABS: BLOOD UREA NITROGEN 24 MG/DL (9-23); CALCIUM LEVEL 8.2 MG/DL (8.3-10.6); CARBON DIOXIDE LEVEL 29 MMOL/L (20-31); CHLORIDE LEVEL 100 MMOL/L (98-107); CREATININE FOR GFR 0.59 MG/DL (0.55-1.30); GLOMERULAR FILTRATION RATE > 60.0 (>45); GLUCOSE, FASTING 124 MG/DL (74-106); SODIUM LEVEL 135 MMOL/L (136-145)
[2023-05-12] MEDS: ERTAPENEM SODIUM 1 GM in NS MINI-BAG PLUS 50 ML IV SCH (08:33)
[2023-05-12] MEDS: FUROSEMIDE 40MG/4ML VIAL IV SCH (08:33)
[2023-05-12] MEDS: BISACODYL 10MG SUPP PR SCH ×4 (08:34→21:00)
[2023-05-12] MEDS: HEPARIN SOD (PORCINE) 5000UNITS/ML 1ML VIAL/SYRINGE SC SCH ×2 (08:34→21:00)
[2023-05-12] MEDS: SIMETHICONE 80MG CHEW TAB PO SCH ×4 (08:34→21:00)
[2023-05-12] MEDS: LACTOBACILLUS ACIDOPHILUS CAP (BACID) PO SCH ×3 (08:34→21:00)
[2023-05-12] MEDS: guaiFENesin ER TABLET 600 MG TAB PO SCH ×2 (08:34→21:00)
[2023-05-12] MEDS: PANTOPRAZOLE 40MG TAB (PROTONIX) PO SCH (08:34)
[2023-05-12] MEDS: DICYCLOMINE 10 MG CAP PO SCH ×3 (08:34→21:00)
[2023-05-12 14:00] VITALS: BP 112/74; TEMP 98.4; O2SAT 94
[2023-05-12] MEDS ORDERED: AMINO AC/ELECTROLYTE/DEX/CALC 2,000 ML IV SCH (18:00)
[2023-05-12] MEDS ORDERED: FAT EMULSION IV 250 ML IV ONE (18:00)
[2023-05-12 20:15] VITALS: BP 122/77; TEMP 99.3; O2SAT 95
[2023-05-12] MEDS: traZODone 50 MG TAB PO PRN (21:00)
[2023-05-12] MEDS: NICOTINE 14 MG/24 HR TRANSDERMAL TD SCH (21:00)
[2023-05-13] MEDS: SODIUM CHLORIDE 0.9% INJ 10 ML SYR IV SCH ×2 (05:15→17:43)
[2023-05-13] MEDS: ACETAMINOPHEN TAB 650MG DOSE (2X325MG) PO SCH ×4 (05:15→17:43)
[2023-05-13 05:29] VITALS: BP 129/81; TEMP 99.1; O2SAT 94
[2023-05-13] MEDS: INSULIN LISPRO (NovoLOG) PER UNIT SC SCH ×4 (06:00→18:00)
[2023-05-13 06:31] LABS: BASO # 0.1 10^3/uL (0.0-0.2); EOS # 0.3 10^3/uL (0.0-0.5); EOS % 5.1 % (0.0-3.0); HEMATOCRIT 33.2 % (36.0-47.0); HEMOGLOBIN 10.9 g/dl (12.0-15.5); LYMPH # 1.5 10^3/uL (1.5-5.0); LYMPH % 24.2 % (24.0-44.0); MEAN CORPUSCULAR HEMOGLOBIN 29.4 pg (27.0-33.0); MEAN CORPUSCULAR HGB CONC 32.8 g/dl (32.0-36.5); MEAN CORPUSCULAR VOLUME 89.5 fl (80.0-96.0); MONO # 0.8 10^3/uL (0.0-0.8); MONO % 13.2 % (2.0-8.0); NEUTROPHILS # 3.4 10^3/uL (1.5-8.5); NEUTROPHILS % 55.7 % (36.0-66.0); PLATELET COUNT, AUTOMATED 431 10^3/uL (150-450); RED BLOOD COUNT 3.71 10^6/uL (4.00-5.40); WHITE BLOOD COUNT 6.1 10^3/uL (4.0-10.0)
[2023-05-13 06:56] LABS: BLOOD UREA NITROGEN 21 MG/DL (9-23); CALCIUM LEVEL 8.3 MG/DL (8.3-10.6); CARBON DIOXIDE LEVEL 27 MMOL/L (20-31); CHLORIDE LEVEL 101 MMOL/L (98-107); CREATININE FOR GFR 0.57 MG/DL (0.55-1.30); GLOMERULAR FILTRATION RATE > 60.0 (>45); GLUCOSE, FASTING 111 MG/DL (74-106); POTASSIUM SERUM 4.8 MMOL/L (3.5-5.1); SODIUM LEVEL 135 MMOL/L (136-145)
[2023-05-13] MEDS: HEPARIN SOD (PORCINE) 5000UNITS/ML 1ML VIAL/SYRINGE SC SCH ×2 (09:35→21:58)
[2023-05-13] MEDS: SIMETHICONE 80MG CHEW TAB PO SCH ×4 (09:36→21:58)
[2023-05-13] MEDS: ERTAPENEM SODIUM 1 GM in NS MINI-BAG PLUS 50 ML IV SCH (09:36)
[2023-05-13] MEDS: PANTOPRAZOLE 40MG TAB (PROTONIX) PO SCH (09:36)
[2023-05-13] MEDS: LACTOBACILLUS ACIDOPHILUS CAP (BACID) PO SCH ×3 (09:36→21:58)
[2023-05-13] MEDS: DICYCLOMINE 10 MG CAP PO SCH ×3 (09:36→21:58)
[2023-05-13] MEDS: guaiFENesin ER TABLET 600 MG TAB PO SCH ×2 (09:36→21:58)
[2023-05-13] MEDS: BISACODYL 10MG SUPP PR SCH ×4 (09:38→21:58)
[2023-05-13 14:00] VITALS: BP 128/87; TEMP 98.6; O2SAT 98
[2023-05-13] MEDS ORDERED: MULTIVITAMIN -ADULT INJECTION 10 ML, ZINC/COPPER/MANGANESE/SELENIUM 1 ML in AMINO AC/EL... IV SCH (18:00)
[2023-05-13] MEDS ORDERED: FAT EMULSION IV 250 ML IV ONE (18:00)
[2023-05-13 21:58] VITALS: BP 117/73; TEMP 98; O2SAT 98
[2023-05-13] MEDS: NICOTINE 14 MG/24 HR TRANSDERMAL TD SCH (21:58)
[2023-05-13] MEDS: traZODone 50 MG TAB PO PRN (22:16)
[2023-05-14 05:30] VITALS: BP 129/87; TEMP 97.5; O2SAT 95
[2023-05-14] MEDS: INSULIN LISPRO (NovoLOG) PER UNIT SC SCH ×5 (05:51→23:58)
[2023-05-14] MEDS: ACETAMINOPHEN TAB 650MG DOSE (2X325MG) PO SCH ×5 (06:17→23:23)
[2023-05-14] MEDS: SODIUM CHLORIDE 0.9% INJ 10 ML SYR IV SCH ×2 (06:17→17:15)
[2023-05-14 09:09] LABS: BASO # 0.1 10^3/uL (0.0-0.2); BASO % 1.4 % (0.0-1.0); EOS # 0.3 10^3/uL (0.0-0.5); EOS % 4.3 % (0.0-3.0); HEMATOCRIT 33.8 % (36.0-47.0); HEMOGLOBIN 11.1 g/dl (12.0-15.5); LYMPH # 1.4 10^3/uL (1.5-5.0); LYMPH % 24.6 % (24.0-44.0); MEAN CORPUSCULAR HEMOGLOBIN 29.9 pg (27.0-33.0); MEAN CORPUSCULAR HGB CONC 32.8 g/dl (32.0-36.5); MEAN CORPUSCULAR VOLUME 91.1 fl (80.0-96.0); MONO # 0.9 10^3/uL (0.0-0.8); MONO % 14.9 % (2.0-8.0); NEUTROPHILS # 3.1 10^3/uL (1.5-8.5); NEUTROPHILS % 53.9 % (36.0-66.0); PLATELET COUNT, AUTOMATED 396 10^3/uL (150-450); RED BLOOD COUNT 3.71 10^6/uL (4.00-5.40); WHITE BLOOD COUNT 5.8 10^3/uL (4.0-10.0)
[2023-05-14] MEDS: LACTOBACILLUS ACIDOPHILUS CAP (BACID) PO SCH ×3 (09:15→21:14)
[2023-05-14] MEDS: guaiFENesin ER TABLET 600 MG TAB PO SCH ×2 (09:15→21:14)
[2023-05-14] MEDS: SIMETHICONE 80MG CHEW TAB PO SCH ×4 (09:15→21:00)
[2023-05-14] MEDS: ERTAPENEM SODIUM 1 GM in NS MINI-BAG PLUS 50 ML IV SCH (09:15)
[2023-05-14] MEDS: BISACODYL 10MG SUPP PR SCH ×4 (09:15→21:00)
[2023-05-14] MEDS: DICYCLOMINE 10 MG CAP PO SCH ×3 (09:15→21:14)
[2023-05-14] MEDS: HEPARIN SOD (PORCINE) 5000UNITS/ML 1ML VIAL/SYRINGE SC SCH ×2 (09:16→21:16)
[2023-05-14] MEDS: PANTOPRAZOLE 40MG TAB (PROTONIX) PO SCH (09:16)
[2023-05-14 09:34] LABS: ALBUMIN 1.8 G/DL (3.2-5.2); ALKALINE PHOSPHATASE 121 U/L (46-116); ALT/SGPT 26 U/L (7.0-40); AST/SGOT 34 U/L (<34); BILIRUBIN,TOTAL 0.5 MG/DL (0.3-1.2); BLOOD UREA NITROGEN 22 MG/DL (9-23); CALCIUM LEVEL 8.3 MG/DL (8.3-10.6); CARBON DIOXIDE LEVEL 27 MMOL/L (20-31); CHLORIDE LEVEL 106 MMOL/L (98-107); CREATININE FOR GFR 0.64 MG/DL (0.55-1.30); GLOMERULAR FILTRATION RATE > 60.0 (>45); GLUCOSE, FASTING 112 MG/DL (74-106); POTASSIUM SERUM 4.6 MMOL/L (3.5-5.1); SODIUM LEVEL 139 MMOL/L (136-145); TOTAL PROTEIN 5.7 G/DL (5.7-8.2)
[2023-05-14 13:36] VITALS: BP 130/88; TEMP 98.7; O2SAT 95
[2023-05-14] MEDS ORDERED: AMINO AC/ELECTROLYTE/DEX/CALC 2,000 ML IV SCH (18:00)
[2023-05-14] MEDS ORDERED: FAT EMULSION IV 250 ML IV ONE (18:00)
[2023-05-14 20:00] VITALS: BP 129/83; TEMP 97.9; O2SAT 95
[2023-05-14] MEDS: NICOTINE 14 MG/24 HR TRANSDERMAL TD SCH (21:00)
[2023-05-14] MEDS: traZODone 50 MG TAB PO PRN (21:14)
[2023-05-14] MEDS: CHLORASEPTIC SPRAY MT PRN (21:19)
[2023-05-15] VITALS (9 sets, daily range): BP systolic 109–129; BP diastolic 75–83; TEMP 97.2–98.8; O2SAT 93–99
[2023-05-15] MEDS: ACETAMINOPHEN TAB 650MG DOSE (2X325MG) PO SCH ×3 (01:10→18:00)
[2023-05-15] MEDS: SODIUM CHLORIDE 0.9% INJ 10 ML SYR IV SCH ×2 (05:00→18:33)
[2023-05-15] MEDS: INSULIN LISPRO (NovoLOG) PER UNIT SC SCH ×3 (05:08→18:32)
[2023-05-15] MEDS ORDERED: GLUCAGON INJ 1MG VIAL As Ordered ONE (07:10)
[2023-05-15] MEDS ORDERED: ERTAPENEM 1GM VIAL (INVanz) As Ordered ONE (08:03)
[2023-05-15] MEDS ORDERED: ERTAPENEM 1GM VIAL (INVanz) ONE (08:03)
[2023-05-15] MEDS ORDERED: HYDROmorphone HCL 2MG/ML 1ML VIAL As Ordered ONE (08:16)
[2023-05-15] MEDS ORDERED: LIDOCAINE 2% 100MG/5ML SDV (FOR ANES.) As Ordered ONE (08:16)
[2023-05-15] MEDS ORDERED: MIDAZOLAM INJ 2MG/2ML VIAL As Ordered ONE (08:16)
[2023-05-15] MEDS ORDERED: propofoL 200 MG/20 ML VIAL As Ordered ONE (08:16)
[2023-05-15] MEDS ORDERED: fentaNYL 250 MCG/5 ML INJECTION As Ordered ONE (08:16)
[2023-05-15] MEDS ORDERED: ROCURONIUM BROMIDE 50MG/5ML VIAL As Ordered ONE ×2 (08:16→08:44)
[2023-05-15] MEDS ORDERED: ONDANSETRON 4MG 2ML VIAL As Ordered ONE (08:16)
[2023-05-15] MEDS ORDERED: SUGAMMADEX SODIUM 500 MG/5 ML VIAL (BRIDION) As Ordered ONE (08:16)
[2023-05-15] MEDS ORDERED: PHENYLephrine 500MCG 5ML (100MCG/ML) SYRINGE As Ordered ONE (08:25)
[2023-05-15] MEDS ORDERED: ESMOLOL INJ 100MG/10ML VIAL As Ordered ONE (08:41)
[2023-05-15] MEDS ORDERED: ACETAMINOPHEN 1000MG 100ML IV BAG As Ordered ONE (08:46)
[2023-05-15] MEDS: HEPARIN SOD (PORCINE) 5000UNITS/ML 1ML VIAL/SYRINGE SC SCH (09:00)
[2023-05-15] MEDS ORDERED: LABETALOL 100MG/20ML VIAL As Ordered ONE (09:19)
[2023-05-15] MEDS ORDERED: ONDANSETRON 4MG 2ML VIAL IV PRN (11:05)
[2023-05-15] MEDS ORDERED: LR 1,000 ML IV SCH (11:05)
[2023-05-15] MEDS ORDERED: oxyCODONE 5MG TAB PO PRN (11:05)
[2023-05-15] MEDS ORDERED: HYDROMORPHONE HCL 0.5 MG/ 0.5 ML SYRINGE IV PRN ×2 (11:05→11:10)
[2023-05-15] MEDS ORDERED: METOCLOPRAMIDE INJ 10MG/2ML VIAL IV PRN (11:05)
[2023-05-15] MEDS ORDERED: fentaNYL 100 MCG/2 ML INJECTION IV PRN (11:05)
[2023-05-15] MEDS: LACTOBACILLUS ACIDOPHILUS CAP (BACID) PO SCH ×3 (12:56→20:38)
[2023-05-15] MEDS: ERTAPENEM SODIUM 1 GM in NS MINI-BAG PLUS 50 ML IV SCH (12:57)
[2023-05-15] MEDS: PANTOPRAZOLE 40MG TAB (PROTONIX) PO SCH (14:27)
[2023-05-15] MEDS: guaiFENesin ER TABLET 600 MG TAB PO SCH ×2 (14:30→20:39)
[2023-05-15] MEDS: HYDROMORPHONE HCL 0.5 MG/ 0.5 ML SYRINGE IV PRN ×2 (15:57→20:41)
[2023-05-15] MEDS ORDERED: FAT EMULSION IV 250 ML IV ONE (18:00)
[2023-05-15] MEDS ORDERED: MULTIVITAMIN -ADULT INJECTION 10 ML, ZINC/COPPER/MANGANESE/SELENIUM 1 ML in AMINO AC/EL... IV SCH (18:00)
[2023-05-15] MEDS: ALVIMOPAN 12 MG CAPSULE (ENTEREG) PO SCH (20:39)
[2023-05-15] MEDS: NICOTINE 14 MG/24 HR TRANSDERMAL TD SCH (20:40)
[2023-05-16] VITALS (9 sets, daily range): BP systolic 109–115; BP diastolic 72–75; TEMP 97–98.4; O2SAT 92–98
[2023-05-16] MEDS: INSULIN LISPRO (NovoLOG) PER UNIT SC SCH ×4 (00:23→18:00)
[2023-05-16] MEDS: ACETAMINOPHEN TAB 650MG DOSE (2X325MG) PO SCH ×5 (00:29→17:42)
[2023-05-16] MEDS: ONDANSETRON 4MG 2ML VIAL IV PRN (02:28)
[2023-05-16 02:34] LABS: HEMATOCRIT 32.6 % (36.0-47.0); HEMOGLOBIN 10.5 g/dl (12.0-15.5); MEAN CORPUSCULAR HEMOGLOBIN 28.9 pg (27.0-33.0); MEAN CORPUSCULAR HGB CONC 32.2 g/dl (32.0-36.5); MEAN CORPUSCULAR VOLUME 89.8 fl (80.0-96.0); PLATELET COUNT, AUTOMATED 474 10^3/uL (150-450); RED BLOOD COUNT 3.63 10^6/uL (4.00-5.40); WHITE BLOOD COUNT 21.9 10^3/uL (4.0-10.0)
[2023-05-16 02:58] LABS: BLOOD UREA NITROGEN 29 MG/DL (9-23); CALCIUM LEVEL 8.1 MG/DL (8.3-10.6); CARBON DIOXIDE LEVEL 24 MMOL/L (20-31); CHLORIDE LEVEL 104 MMOL/L (98-107); CREATININE FOR GFR 0.63 MG/DL (0.55-1.30); GLOMERULAR FILTRATION RATE > 60.0 (>45); GLUCOSE, FASTING 139 MG/DL (74-106); MAGNESIUM LEVEL 1.9 MG/DL (1.8-2.4); SODIUM LEVEL 133 MMOL/L (136-145)
[2023-05-16] MEDS: SODIUM CHLORIDE 0.9% INJ 10 ML SYR IV SCH ×2 (06:10→17:42)
[2023-05-16] MEDS: ERTAPENEM SODIUM 1 GM in NS MINI-BAG PLUS 50 ML IV SCH (10:13)
[2023-05-16] MEDS: PANTOPRAZOLE 40MG TAB (PROTONIX) PO SCH (10:14)
[2023-05-16] MEDS: guaiFENesin ER TABLET 600 MG TAB PO SCH ×2 (10:14→20:32)
[2023-05-16] MEDS: LACTOBACILLUS ACIDOPHILUS CAP (BACID) PO SCH ×3 (10:14→20:31)
[2023-05-16] MEDS: ALVIMOPAN 12 MG CAPSULE (ENTEREG) PO SCH ×2 (10:19→20:31)
[2023-05-16] MEDS: SODIUM CHLORIDE 0.9% INJ 10 ML SYR IV PRN (11:08)
[2023-05-16] MEDS: HYDROMORPHONE HCL 0.5 MG/ 0.5 ML SYRINGE IV PRN ×2 (11:21→20:33)
[2023-05-16] MEDS ORDERED: FAT EMULSION IV 250 ML IV ONE (18:00)
[2023-05-16] MEDS ORDERED: AMINO AC/ELECTROLYTE/DEX/CALC 2,000 ML IV SCH (18:00)
[2023-05-16] MEDS: NICOTINE 14 MG/24 HR TRANSDERMAL TD SCH (20:41)
[2023-05-16] MEDS: HEPARIN SOD (PORCINE) 5000UNITS/ML 1ML VIAL/SYRINGE SC SCH (22:02)
[2023-05-17] MEDS: ACETAMINOPHEN TAB 650MG DOSE (2X325MG) PO SCH ×5 (00:21→23:30)
[2023-05-17] MEDS: INSULIN LISPRO (NovoLOG) PER UNIT SC SCH ×3 (00:22→12:00)
[2023-05-17] MEDS: HYDROMORPHONE HCL 0.5 MG/ 0.5 ML SYRINGE IV PRN ×3 (00:42→14:53)
[2023-05-17 04:00] VITALS: BP 114/72; TEMP 97.7; O2SAT 95
[2023-05-17] MEDS: SODIUM CHLORIDE 0.9% INJ 10 ML SYR IV SCH ×2 (06:11→18:06)
[2023-05-17 07:01] LABS: BASO # 0.1 10^3/uL (0.0-0.2); BASO % 0.6 % (0.0-1.0); EOS # 0.5 10^3/uL (0.0-0.5); EOS % 2.9 % (0.0-3.0); HEMOGLOBIN 9.1 g/dl (12.0-15.5); LYMPH # 1.6 10^3/uL (1.5-5.0); LYMPH % 9.8 % (24.0-44.0); MEAN CORPUSCULAR HEMOGLOBIN 29.2 pg (27.0-33.0); MEAN CORPUSCULAR HGB CONC 32.5 g/dl (32.0-36.5); MEAN CORPUSCULAR VOLUME 89.7 fl (80.0-96.0); MONO # 0.9 10^3/uL (0.0-0.8); MONO % 5.4 % (2.0-8.0); NEUTROPHILS # 12.6 10^3/uL (1.5-8.5); NEUTROPHILS % 79.8 % (36.0-66.0); PLATELET COUNT, AUTOMATED 364 10^3/uL (150-450); RED BLOOD COUNT 3.12 10^6/uL (4.00-5.40); WHITE BLOOD COUNT 15.8 10^3/uL (4.0-10.0)
[2023-05-17 08:02] LABS: BLOOD UREA NITROGEN 18 MG/DL (9-23); CALCIUM LEVEL 7.4 MG/DL (8.3-10.6); CARBON DIOXIDE LEVEL 25 MMOL/L (20-31); CHLORIDE LEVEL 104 MMOL/L (98-107); CREATININE FOR GFR 0.57 MG/DL (0.55-1.30); GLOMERULAR FILTRATION RATE > 60.0 (>45); GLUCOSE, FASTING 111 MG/DL (74-106); POTASSIUM SERUM 4.8 MMOL/L (3.5-5.1); SODIUM LEVEL 134 MMOL/L (136-145)
[2023-05-17] MEDS ORDERED: ISOVUE-370 76% 100ML VIAL As Ordered ONE (08:46)
[2023-05-17] MEDS: PANTOPRAZOLE 40MG TAB (PROTONIX) PO SCH (08:56)
[2023-05-17] MEDS: guaiFENesin ER TABLET 600 MG TAB PO SCH ×2 (08:56→20:31)
[2023-05-17] MEDS: LACTOBACILLUS ACIDOPHILUS CAP (BACID) PO SCH ×3 (08:56→20:31)
[2023-05-17] MEDS: HEPARIN SOD (PORCINE) 5000UNITS/ML 1ML VIAL/SYRINGE SC SCH ×2 (08:57→20:31)
[2023-05-17] MEDS: ALVIMOPAN 12 MG CAPSULE (ENTEREG) PO SCH ×2 (08:57→20:31)
[2023-05-17] MEDS: ERTAPENEM SODIUM 1 GM in NS MINI-BAG PLUS 50 ML IV SCH (08:59)
[2023-05-17] MEDS: METOPROLOL TART 12.5 MG PER 1/2 TAB PO SCH ×5 (09:00→23:30)
[2023-05-17] MEDS: NS 1,000 ML IV SCH ×2 (09:07→18:08)
[2023-05-17] MEDS: SODIUM CHLORIDE 0.9% INJ 10 ML SYR IV PRN (09:31)
[2023-05-17 10:00] VITALS: BP 115/73; TEMP 98.6; O2SAT 93
[2023-05-17 13:30] VITALS: BP 116/74; TEMP 98.2; O2SAT 95
[2023-05-17 17:58] VITALS: BP 100/65; TEMP 97.9; O2SAT 95
[2023-05-17] MEDS: NICOTINE 14 MG/24 HR TRANSDERMAL TD SCH (20:36)
[2023-05-17 21:42] VITALS: BP 105/68; TEMP 98; O2SAT 94
[2023-05-18] MEDS: HYDROMORPHONE HCL 0.5 MG/ 0.5 ML SYRINGE IV PRN ×4 (03:06→18:44)
[2023-05-18] MEDS: SODIUM CHLORIDE 0.9% INJ 10 ML SYR IV SCH ×2 (05:50→17:37)
[2023-05-18] MEDS: NS 1,000 ML IV SCH (05:50)
[2023-05-18 05:52] VITALS: BP 119/74; TEMP 97.7; O2SAT 93
[2023-05-18] MEDS: ACETAMINOPHEN TAB 650MG DOSE (2X325MG) PO SCH ×5 (05:54→23:00)
[2023-05-18] MEDS: METOPROLOL TART 12.5 MG PER 1/2 TAB PO SCH ×4 (05:54→23:01)
[2023-05-18 06:13] LABS: BASO # 0.1 10^3/uL (0.0-0.2); EOS # 0.5 10^3/uL (0.0-0.5); EOS % 5.2 % (0.0-3.0); HEMATOCRIT 26.3 % (36.0-47.0); HEMOGLOBIN 8.7 g/dl (12.0-15.5); LYMPH # 1.2 10^3/uL (1.5-5.0); LYMPH % 12.8 % (24.0-44.0); MEAN CORPUSCULAR HEMOGLOBIN 29.5 pg (27.0-33.0); MEAN CORPUSCULAR HGB CONC 33.1 g/dl (32.0-36.5); MEAN CORPUSCULAR VOLUME 89.2 fl (80.0-96.0); MONO # 0.6 10^3/uL (0.0-0.8); NEUTROPHILS # 6.9 10^3/uL (1.5-8.5); NEUTROPHILS % 73.5 % (36.0-66.0); PLATELET COUNT, AUTOMATED 348 10^3/uL (150-450); RED BLOOD COUNT 2.95 10^6/uL (4.00-5.40); WHITE BLOOD COUNT 9.4 10^3/uL (4.0-10.0)
[2023-05-18 06:43] LABS: BLOOD UREA NITROGEN 13 MG/DL (9-23); CARBON DIOXIDE LEVEL 24 MMOL/L (20-31); CHLORIDE LEVEL 108 MMOL/L (98-107); CREATININE FOR GFR 0.56 MG/DL (0.55-1.30); GLOMERULAR FILTRATION RATE > 60.0 (>45); GLUCOSE, FASTING 87 MG/DL (74-106); POTASSIUM SERUM 4.7 MMOL/L (3.5-5.1); SODIUM LEVEL 137 MMOL/L (136-145)
[2023-05-18] MEDS: PANTOPRAZOLE 40MG TAB (PROTONIX) PO SCH (09:32)
[2023-05-18] MEDS: HEPARIN SOD (PORCINE) 5000UNITS/ML 1ML VIAL/SYRINGE SC SCH ×2 (09:32→20:30)
[2023-05-18] MEDS: guaiFENesin ER TABLET 600 MG TAB PO SCH ×2 (09:32→20:30)
[2023-05-18] MEDS: LACTOBACILLUS ACIDOPHILUS CAP (BACID) PO SCH ×3 (09:32→20:30)
[2023-05-18] MEDS: ALVIMOPAN 12 MG CAPSULE (ENTEREG) PO SCH ×2 (09:32→20:30)
[2023-05-18] MEDS: ERTAPENEM SODIUM 1 GM in NS MINI-BAG PLUS 50 ML IV SCH (09:33)
[2023-05-18] MEDS: SODIUM CHLORIDE 0.9% INJ 10 ML SYR IV PRN ×3 (09:53→18:44)
[2023-05-18 14:00] VITALS: BP 120/77; TEMP 97; O2SAT 97
[2023-05-18] MEDS: NICOTINE 14 MG/24 HR TRANSDERMAL TD SCH (20:31)
[2023-05-18 21:32] VITALS: BP 122/79; TEMP 97.3; O2SAT 94
[2023-05-18] MEDS: traZODone 50 MG TAB PO PRN (23:00)
[2023-05-19] MEDS: HYDROMORPHONE HCL 0.5 MG/ 0.5 ML SYRINGE IV PRN ×4 (02:50→20:27)
[2023-05-19] MEDS: ACETAMINOPHEN TAB 650MG DOSE (2X325MG) PO SCH ×4 (05:19→23:50)
[2023-05-19] MEDS: SODIUM CHLORIDE 0.9% INJ 10 ML SYR IV SCH ×2 (05:20→17:18)
[2023-05-19 05:30] VITALS: BP 121/78; TEMP 97.7; O2SAT 96
[2023-05-19] MEDS: METOPROLOL TART 12.5 MG PER 1/2 TAB PO SCH ×4 (05:30→23:51)
[2023-05-19 05:46] LABS: BASO # 0.1 10^3/uL (0.0-0.2); BASO % 0.9 % (0.0-1.0); EOS # 0.5 10^3/uL (0.0-0.5); EOS % 5.1 % (0.0-3.0); HEMATOCRIT 26.5 % (36.0-47.0); HEMOGLOBIN 8.4 g/dl (12.0-15.5); LYMPH # 1.3 10^3/uL (1.5-5.0); LYMPH % 14.3 % (24.0-44.0); MEAN CORPUSCULAR HEMOGLOBIN 28.7 pg (27.0-33.0); MEAN CORPUSCULAR HGB CONC 31.7 g/dl (32.0-36.5); MEAN CORPUSCULAR VOLUME 90.4 fl (80.0-96.0); MONO # 0.6 10^3/uL (0.0-0.8); MONO % 6.1 % (2.0-8.0); NEUTROPHILS # 6.5 10^3/uL (1.5-8.5); NEUTROPHILS % 72.7 % (36.0-66.0); PLATELET COUNT, AUTOMATED 367 10^3/uL (150-450); RED BLOOD COUNT 2.93 10^6/uL (4.00-5.40)
[2023-05-19 06:17] LABS: BLOOD UREA NITROGEN 10 MG/DL (9-23); CALCIUM LEVEL 7.7 MG/DL (8.3-10.6); CARBON DIOXIDE LEVEL 25 MMOL/L (20-31); CHLORIDE LEVEL 109 MMOL/L (98-107); CREATININE FOR GFR 0.59 MG/DL (0.55-1.30); GLOMERULAR FILTRATION RATE > 60.0 (>45); GLUCOSE, FASTING 95 MG/DL (74-106); SODIUM LEVEL 140 MMOL/L (136-145)
[2023-05-19 06:29] LABS: PROCALCITONIN 0.37 ng/ml
[2023-05-19] MEDS: PANTOPRAZOLE 40MG TAB (PROTONIX) PO SCH (08:28)
[2023-05-19] MEDS: guaiFENesin ER TABLET 600 MG TAB PO SCH ×2 (08:28→20:25)
[2023-05-19] MEDS: ERTAPENEM SODIUM 1 GM in NS MINI-BAG PLUS 50 ML IV SCH (08:28)
[2023-05-19] MEDS: LACTOBACILLUS ACIDOPHILUS CAP (BACID) PO SCH ×3 (08:28→20:24)
[2023-05-19] MEDS: HEPARIN SOD (PORCINE) 5000UNITS/ML 1ML VIAL/SYRINGE SC SCH ×2 (08:29→20:25)
[2023-05-19] MEDS: ALVIMOPAN 12 MG CAPSULE (ENTEREG) PO SCH ×2 (08:30→20:25)
[2023-05-19] MEDS ORDERED: SIMETHICONE 80MG CHEW TAB PO PRN (12:10)
[2023-05-19] MEDS ORDERED: SIMETHICONE 80MG CHEW TAB PO ONE (12:15)
[2023-05-19 14:00] VITALS: BP 123/79; TEMP 97.7; O2SAT 97
[2023-05-19 20:23] VITALS: BP 126/80; TEMP 97.9; O2SAT 95
[2023-05-19] MEDS: NICOTINE 14 MG/24 HR TRANSDERMAL TD SCH (20:25)
[2023-05-20 05:18] VITALS: BP 123/78; TEMP 98.6; O2SAT 97
[2023-05-20] MEDS: ACETAMINOPHEN TAB 650MG DOSE (2X325MG) PO SCH ×4 (05:36→23:52)
[2023-05-20] MEDS: METOPROLOL TART 12.5 MG PER 1/2 TAB PO SCH ×4 (05:37→23:53)
[2023-05-20] MEDS: SODIUM CHLORIDE 0.9% INJ 10 ML SYR IV SCH ×2 (05:38→17:23)
[2023-05-20 06:13] LABS: BASO # 0.1 10^3/uL (0.0-0.2); BASO % 0.8 % (0.0-1.0); EOS # 0.4 10^3/uL (0.0-0.5); EOS % 4.3 % (0.0-3.0); HEMATOCRIT 27.3 % (36.0-47.0); HEMOGLOBIN 8.8 g/dl (12.0-15.5); LYMPH # 1.2 10^3/uL (1.5-5.0); LYMPH % 13.3 % (24.0-44.0); MEAN CORPUSCULAR HEMOGLOBIN 29.1 pg (27.0-33.0); MEAN CORPUSCULAR HGB CONC 32.2 g/dl (32.0-36.5); MEAN CORPUSCULAR VOLUME 90.4 fl (80.0-96.0); MONO # 0.4 10^3/uL (0.0-0.8); MONO % 5.1 % (2.0-8.0); NEUTROPHILS # 6.6 10^3/uL (1.5-8.5); NEUTROPHILS % 75.8 % (36.0-66.0); PLATELET COUNT, AUTOMATED 369 10^3/uL (150-450); RED BLOOD COUNT 3.02 10^6/uL (4.00-5.40); WHITE BLOOD COUNT 8.7 10^3/uL (4.0-10.0)
[2023-05-20 06:31] LABS: BLOOD UREA NITROGEN 10 MG/DL (9-23); CALCIUM LEVEL 7.7 MG/DL (8.3-10.6); CARBON DIOXIDE LEVEL 25 MMOL/L (20-31); CHLORIDE LEVEL 110 MMOL/L (98-107); GLOMERULAR FILTRATION RATE > 60.0 (>45); GLUCOSE, FASTING 147 MG/DL (74-106); POTASSIUM SERUM 3.6 MMOL/L (3.5-5.1); SODIUM LEVEL 141 MMOL/L (136-145)
[2023-05-20] MEDS: PANTOPRAZOLE 40MG TAB (PROTONIX) PO SCH (08:06)
[2023-05-20] MEDS: guaiFENesin ER TABLET 600 MG TAB PO SCH ×2 (08:06→21:24)
[2023-05-20] MEDS: ALVIMOPAN 12 MG CAPSULE (ENTEREG) PO SCH (08:06)
[2023-05-20] MEDS: ERTAPENEM SODIUM 1 GM in NS MINI-BAG PLUS 50 ML IV SCH (08:06)
[2023-05-20] MEDS: HEPARIN SOD (PORCINE) 5000UNITS/ML 1ML VIAL/SYRINGE SC SCH ×2 (08:07→21:24)
[2023-05-20] MEDS: SODIUM CHLORIDE 0.9% INJ 10 ML SYR IV PRN (08:07)
[2023-05-20] MEDS: HYDROMORPHONE HCL 0.5 MG/ 0.5 ML SYRINGE IV PRN (08:07)
[2023-05-20] MEDS: LACTOBACILLUS ACIDOPHILUS CAP (BACID) PO SCH ×3 (08:08→21:24)
[2023-05-20 11:57] VITALS: BP 122/76
[2023-05-20 14:00] VITALS: BP 123/76; TEMP 98.2; O2SAT 97
[2023-05-20] MEDS ORDERED: PERCOCET 5MG/325MG TAB PO PRN (14:20)
[2023-05-20] MEDS: PERCOCET 5MG/325MG TAB PO PRN ×2 (14:26→21:25)
[2023-05-20] MEDS: NICOTINE 14 MG/24 HR TRANSDERMAL TD SCH (21:00)
[2023-05-20 21:31] VITALS: BP 124/78; TEMP 98.1; O2SAT 96
[2023-05-21 05:10] VITALS: BP 121/78; TEMP 98.6; O2SAT 96
[2023-05-21] MEDS: SODIUM CHLORIDE 0.9% INJ 10 ML SYR IV SCH (05:14)
[2023-05-21] MEDS: ACETAMINOPHEN TAB 650MG DOSE (2X325MG) PO SCH ×3 (05:15→18:52)
[2023-05-21 05:16] VITALS: BP 121/78
[2023-05-21] MEDS: METOPROLOL TART 12.5 MG PER 1/2 TAB PO SCH ×3 (05:16→18:52)
[2023-05-21 05:48] LABS: BASO # 0.1 10^3/uL (0.0-0.2); BASO % 0.8 % (0.0-1.0); EOS # 0.4 10^3/uL (0.0-0.5); EOS % 5.1 % (0.0-3.0); HEMOGLOBIN 8.8 g/dl (12.0-15.5); LYMPH # 1.4 10^3/uL (1.5-5.0); LYMPH % 15.7 % (24.0-44.0); MEAN CORPUSCULAR HEMOGLOBIN 29.6 pg (27.0-33.0); MEAN CORPUSCULAR HGB CONC 32.6 g/dl (32.0-36.5); MEAN CORPUSCULAR VOLUME 90.9 fl (80.0-96.0); MONO # 0.5 10^3/uL (0.0-0.8); MONO % 5.9 % (2.0-8.0); NEUTROPHILS # 6.2 10^3/uL (1.5-8.5); NEUTROPHILS % 71.9 % (36.0-66.0); PLATELET COUNT, AUTOMATED 367 10^3/uL (150-450); RED BLOOD COUNT 2.97 10^6/uL (4.00-5.40); WHITE BLOOD COUNT 8.6 10^3/uL (4.0-10.0)
[2023-05-21 06:19] LABS: BLOOD UREA NITROGEN 11 MG/DL (9-23); CALCIUM LEVEL 8.1 MG/DL (8.3-10.6); CARBON DIOXIDE LEVEL 25 MMOL/L (20-31); CHLORIDE LEVEL 109 MMOL/L (98-107); CREATININE FOR GFR 0.59 MG/DL (0.55-1.30); GLOMERULAR FILTRATION RATE > 60.0 (>45); GLUCOSE, FASTING 87 MG/DL (74-106); POTASSIUM SERUM 4.1 MMOL/L (3.5-5.1); SODIUM LEVEL 141 MMOL/L (136-145)
[2023-05-21 06:26] LABS: PROCALCITONIN 0.21 ng/ml
[2023-05-21 07:55] VITALS: BP 121/80; TEMP 97.9; O2SAT 96
[2023-05-21] MEDS: HEPARIN SOD (PORCINE) 5000UNITS/ML 1ML VIAL/SYRINGE SC SCH (08:49)
[2023-05-21] MEDS: LACTOBACILLUS ACIDOPHILUS CAP (BACID) PO SCH (08:49)
[2023-05-21] MEDS: PANTOPRAZOLE 40MG TAB (PROTONIX) PO SCH (08:49)
[2023-05-21] MEDS: guaiFENesin ER TABLET 600 MG TAB PO SCH (08:50)
[2023-05-21] MEDS: PERCOCET 5MG/325MG TAB PO PRN ×2 (09:02→15:44)
[2023-05-21] MEDS ORDERED: PERCOCET PO ×2 (09:22→10:43)
[2023-05-21] MEDS ORDERED: SENO8.6T10 PO (10:43)
[2023-05-21] MEDS ORDERED: SIME80TA16 PO (10:43)
[2023-05-21] MEDS ORDERED: NICO14PA TD (10:43)
[2023-05-21] MEDS ORDERED: METO1TAB87 PO (10:43)
[2023-05-21] MEDS ORDERED: SELF1KIT MC (10:45)
[2023-05-21 14:08] VITALS: BP 115/76; TEMP 98.6; O2SAT 96
[2023-05-21 15:44] VITALS: BP 115/76; TEMP 96.8; O2SAT 96
== END 2023-05-21 19:05 | disposition home health service (06) | DRG 710 ==
LOC: M ED 08:26 → EEVIPCON 13:01 → M ED INP 13:01 → ENRESERV 16:10 → M MSPAV 18:10
PROVIDERS: ADMIT Internal Medicine Nephrology; ATTEND General Practice
PROC: 0W9J30Z Drainage of Pelvic Cavity with Drainage Device, Percutaneous Approach (ICD-10-PCS; principal; 2023-04-29 12:00)
PROC: 02HV33Z Insertion of Infusion Device into Superior Vena Cava, Percutaneous Approach (ICD-10-PCS; 2023-05-03)
PROC: B246ZZZ Ultrasonography of Right and Left Heart (ICD-10-PCS; 2023-05-05)
PROC: 0D1N0Z4 Bypass Sigmoid Colon to Cutaneous, Open Approach (ICD-10-PCS; 2023-05-15)
PROC: 0DTN0ZZ Resection of Sigmoid Colon, Open Approach (ICD-10-PCS; 2023-05-15 07:30)
DX: A41.9 Sepsis, unspecified organism (principal); K65.1 Peritoneal abscess; I47.20 Ventricular tachycardia, unspecified; J18.9 Pneumonia, unspecified organism; J90 Pleural effusion, not elsewhere classified; K56.600 Partial intestinal obstruction, unspecified as to cause; I31.39 Other pericardial effusion (noninflammatory); K57.80 Diverticulitis of intestine, part unspecified, with perforation and abscess without bleeding; K56.7 Ileus, unspecified; E83.51 Hypocalcemia; E87.1 Hypo-osmolality and hyponatremia; E88.09 Other disorders of plasma-protein metabolism, not elsewhere classified; K76.0 Fatty (change of) liver, not elsewhere classified; Z97.5 Presence of (intrauterine) contraceptive device; F17.210 Nicotine dependence, cigarettes, uncomplicated; F10.90 Alcohol use, unspecified, uncomplicated; B96.20 Unspecified Escherichia coli [E. coli] as the cause of diseases classified elsewhere; D64.9 Anemia, unspecified; I73.00 Raynaud's syndrome without gangrene; G47.00 Insomnia, unspecified; R91.1 Solitary pulmonary nodule; Z20.822 Contact with and (suspected) exposure to COVID-19; Z90.49 Acquired absence of other specified parts of digestive tract; Z79.2 Long term (current) use of antibiotics

== ENCOUNTER 2023-10-31 10:35 | Day surgery (SDC) | payer OTHER ==
[~2023-10-31] VITALS: Ht 165.1 cm; Wt 71.6 kg
[~2023-10-31 10:35] MED LIST: CIPR-250 PO; METO1TAB87 PO; NICO14PA TD; PERCOCET PO; SELF1KIT MC; SENO8.6T10 PO; SIME80TA16 PO
[2023-10-31] MEDS: NS 1,000 ML IV ONE (12:22)
[2023-10-31] MEDS ORDERED: propofoL 200 MG/20 ML VIAL As Ordered ONE (12:45)
[2023-10-31] MEDS ORDERED: LIDOCAINE 2% 100MG/5ML SDV (FOR ANES.) As Ordered ONE (12:45)
[2023-10-31] MEDS ORDERED: GLYCOPYRROLATE INJ 0.2 MG/ML 2 ML VIAL As Ordered ONE (13:02)
[2023-10-31 13:14] VITALS: TEMP 97.3
[2023-10-31 13:32] VITALS: BP 140/86; O2SAT 100
== END 2023-10-31 13:36 | disposition home or self-care (01) ==
LOC: M OPP 10:35
PROVIDERS: ATTEND Surgery
DX: Z12.11 Encounter for screening for malignant neoplasm of colon (principal); K57.30 Diverticulosis of large intestine without perforation or abscess without bleeding; K52.89 Other specified noninfective gastroenteritis and colitis; F17.200 Nicotine dependence, unspecified, uncomplicated
CPT/HCPCS: 45378; J1596

== ENCOUNTER 2024-03-30 08:53 | Inpatient (IN) | payer OTHER ==
[~2024-03-30] VITALS: Ht 165.1 cm; Wt 87.8 kg
[~2024-03-30 08:53] MED LIST changes: +ACET-1349 PO; +ALEV1TAB PO; +BUSP10TA PO; +LIDOCAINE 2% 100MG/5ML SDV (FOR ANES.) As Ordered ONE; +ONDANSETRON 4MG 2ML VIAL As Ordered ONE; +ROCURONIUM BROMIDE 50MG/5ML VIAL As Ordered ONE; +SUGAMMADEX SODIUM 500 MG/5 ML VIAL (BRIDION) As Ordered ONE; +UNRESOLVED CLARIFICATION ENTRY XX SCH; +ceFAZolin SOD 2 GM in IV 1 EA IV ONE; +metroNIDAZOLE 500 MG in IV 1 EA IV ONE; +propofoL 200 MG/20 ML VIAL As Ordered ONE
[2024-03-30] MEDS: LR 1,000 ML IV SCH ×2 (09:40→19:50)
[2024-03-30] MEDS ORDERED: BENA25TA5 PO (09:44)
[2024-03-30] MEDS ORDERED: ERTAPENEM SODIUM 1 GM in NS MINI-BAG PLUS 50 ML IV ONE (09:55)
[2024-03-30] MEDS ORDERED: fentaNYL 250 MCG/5 ML INJECTION As Ordered ONE (13:41)
[2024-03-30] MEDS ORDERED: MIDAZOLAM INJ 2MG/2ML VIAL As Ordered ONE (13:42)
[2024-03-30] MEDS ORDERED: ACETAMINOPHEN 1000MG/100ML IV BAG As Ordered ONE (14:18)
[2024-03-30] MEDS ORDERED: PHENYLephrine 500MCG 5ML (100MCG/ML) SYRINGE As Ordered ONE (14:20)
[2024-03-30] MEDS: ERTAPENEM SODIUM 1 GM in NS MINI-BAG PLUS 50 ML IV ONE (14:41)
[2024-03-30] MEDS ORDERED: dexmedeTOMIDine (4MCG/ML)200MCG/50ML BTL (PRECEDEX) As Ordered ONE (15:29)
[2024-03-30] MEDS ORDERED: HYDROmorphone HCL 2MG/ML 1ML VIAL As Ordered ONE (15:41)
[2024-03-30] MEDS ORDERED: LABETALOL 100MG/20ML VIAL As Ordered ONE (15:51)
[2024-03-30] MEDS ORDERED: DESFLURANE 240 ML INHALANT As Ordered ONE (17:38)
[2024-03-30] MEDS ORDERED: fentaNYL 100 MCG/2 ML INJECTION As Ordered ONE (17:54)
[2024-03-30] MEDS: ceFAZolin 2 GM/D5W 50 ML IV BAG As Ordered ONE (17:57)
[2024-03-30] MEDS ORDERED: MORPHINE 4 MG/ML 1ML VIAL IV PRN (19:35)
[2024-03-30] MEDS ORDERED: ERTAPENEM SODIUM 1 GM in NS MINI-BAG PLUS 50 ML IV SCH (19:35)
[2024-03-30] MEDS ORDERED: IPRATROPIUM 0.5MG/ALBUTEROL 2.5MG INH SOL UD 3ML (DUONEB) NEB PRN (19:35)
[2024-03-30] MEDS: NS (Normal Saline) 0.9% 1,000 ML IV SCH (19:35)
[2024-03-30] MEDS ORDERED: fentaNYL 100 MCG/2 ML INJECTION IV PRN (19:50)
[2024-03-30] MEDS ORDERED: oxyCODONE 5MG TAB PO PRN (19:50)
[2024-03-30] MEDS: HYDROMORPHONE HCL 0.5 MG/ 0.5 ML SYRINGE IV PRN (20:19)
[2024-03-30] MEDS: ONDANSETRON 4MG 2ML VIAL IV PRN (20:33)
[2024-03-30 21:30] VITALS: BP 120/83; TEMP 96.8; O2SAT 95
[2024-03-30] MEDS: IPRATROPIUM 0.5MG/ALBUTEROL 2.5MG INH SOL UD 3ML (DUONEB) NEB SCH (21:59)
[2024-03-30 22:00] VITALS: BP 121/84; TEMP 97.3; O2SAT 96
[2024-03-30 22:30] VITALS: BP 122/86; TEMP 97.1; O2SAT 96
[2024-03-30 23:30] VITALS: BP 124/86; TEMP 97.5; O2SAT 96
[2024-03-30] MEDS: KETOROLAC 30 MG/ML 1ML VIAL IV SCH (23:45)
[2024-03-31] VITALS (10 sets, daily range): BP systolic 108–128; BP diastolic 68–86; TEMP 97.5–98.1; O2SAT 93–99
[2024-03-31 06:32] LABS: HEMATOCRIT 41.2 % (36.0-47.0); HEMOGLOBIN 13.8 g/dl (12.0-15.5); MEAN CORPUSCULAR HEMOGLOBIN 32.2 pg (27.0-33.0); MEAN CORPUSCULAR HGB CONC 33.5 g/dl (32.0-36.5); MEAN CORPUSCULAR VOLUME 96.3 fl (80.0-96.0); PLATELET COUNT, AUTOMATED 218 10^3/uL (150-450); RED BLOOD COUNT 4.28 10^6/uL (4.00-5.40); WHITE BLOOD COUNT 15.5 10^3/uL (4.0-10.0)
[2024-03-31 06:57] LABS: BLOOD UREA NITROGEN 29 MG/DL (9-23); CALCIUM LEVEL 8.5 MG/DL (8.3-10.6); CARBON DIOXIDE LEVEL 23 MMOL/L (20-31); CHLORIDE LEVEL 113 MMOL/L (98-107); GLOMERULAR FILTRATION RATE > 60.0 (>45); GLUCOSE, FASTING 141 MG/DL (74-106); SODIUM LEVEL 145 MMOL/L (136-145)
[2024-03-31] MEDS: PANTOPRAZOLE 40MG VIAL IV SCH (08:41)
[2024-03-31] MEDS: ERTAPENEM SODIUM 1 GM in NS MINI-BAG PLUS 50 ML IV SCH (10:29)
[2024-03-31] MEDS: MORPHINE 4 MG/ML 1ML VIAL IV PRN (17:14)
[2024-04-01] VITALS (7 sets, daily range): BP systolic 110–131; BP diastolic 70–89; TEMP 97.9–98.8; O2SAT 92–95
[2024-04-01] MEDS: MORPHINE 2 MG/ML 1ML VIAL IV PRN (05:17)
[2024-04-01 06:24] LABS: HEMATOCRIT 35.3 % (36.0-47.0); MEAN CORPUSCULAR HEMOGLOBIN 32.1 pg (27.0-33.0); MEAN CORPUSCULAR HGB CONC 33.4 g/dl (32.0-36.5); MEAN CORPUSCULAR VOLUME 95.9 fl (80.0-96.0); PLATELET COUNT, AUTOMATED 142 10^3/uL (150-450); RED BLOOD COUNT 3.68 10^6/uL (4.00-5.40); WHITE BLOOD COUNT 9.2 10^3/uL (4.0-10.0)
[2024-04-01 06:29] LABS: HEMOGLOBIN 11.8 g/dl (12.0-15.5)
[2024-04-01 06:38] LABS: BLOOD UREA NITROGEN 19 MG/DL (9-23); CALCIUM LEVEL 8.4 MG/DL (8.3-10.6); CARBON DIOXIDE LEVEL 22 MMOL/L (20-31); CHLORIDE LEVEL 112 MMOL/L (98-107); CREATININE FOR GFR 0.66 MG/DL (0.55-1.30); GLOMERULAR FILTRATION RATE > 60.0 (>45); GLUCOSE, FASTING 104 MG/DL (74-106); POTASSIUM SERUM 4.1 MMOL/L (3.5-5.1); SODIUM LEVEL 142 MMOL/L (136-145)
[2024-04-01] MEDS: ONDANSETRON 4MG 2ML VIAL IV PRN (15:21)
[2024-04-02 04:00] VITALS: BP 139/87; TEMP 97.7; O2SAT 97
[2024-04-02 06:57] LABS: HEMATOCRIT 31.9 % (36.0-47.0); MEAN CORPUSCULAR HEMOGLOBIN 32.8 pg (27.0-33.0); MEAN CORPUSCULAR HGB CONC 34.5 g/dl (32.0-36.5); MEAN CORPUSCULAR VOLUME 95.2 fl (80.0-96.0); PLATELET COUNT, AUTOMATED 147 10^3/uL (150-450); RED BLOOD COUNT 3.35 10^6/uL (4.00-5.40)
[2024-04-02 07:23] LABS: BLOOD UREA NITROGEN 11 MG/DL (9-23); CALCIUM LEVEL 8.1 MG/DL (8.3-10.6); CARBON DIOXIDE LEVEL 20 MMOL/L (20-31); CHLORIDE LEVEL 113 MMOL/L (98-107); CREATININE FOR GFR 0.66 MG/DL (0.55-1.30); GLOMERULAR FILTRATION RATE > 60.0 (>45); GLUCOSE, FASTING 96 MG/DL (74-106); POTASSIUM SERUM 3.8 MMOL/L (3.5-5.1); SODIUM LEVEL 142 MMOL/L (136-145)
[2024-04-02 08:00] VITALS: BP 139/87; TEMP 98.1; O2SAT 94
[2024-04-02] MEDS: PERCOCET 5MG/325MG TAB PO PRN (09:13)
[2024-04-02] MEDS ORDERED: HOME MED LIST COMPLETE! XX SCH (09:30)
[2024-04-02] MEDS: ACETAMINOPHEN 325 MG TAB PO PRN (11:00)
[2024-04-02 12:00] VITALS: BP 108/66; TEMP 97.7; O2SAT 95
[2024-04-02 16:00] VITALS: BP 127/80; TEMP 97.7; O2SAT 94
[2024-04-02 20:20] VITALS: BP 139/88; TEMP 99; O2SAT 93
[2024-04-02 23:20] VITALS: BP 118/69; TEMP 97.3; O2SAT 92
[2024-04-03 04:20] VITALS: BP 140/83; TEMP 97.5; O2SAT 91
[2024-04-03 05:33] LABS: HEMOGLOBIN 10.7 g/dl (12.0-15.5); MEAN CORPUSCULAR HEMOGLOBIN 31.7 pg (27.0-33.0); MEAN CORPUSCULAR HGB CONC 33.4 g/dl (32.0-36.5); MEAN CORPUSCULAR VOLUME 94.7 fl (80.0-96.0); PLATELET COUNT, AUTOMATED 165 10^3/uL (150-450); RED BLOOD COUNT 3.38 10^6/uL (4.00-5.40); WHITE BLOOD COUNT 6.9 10^3/uL (4.0-10.0)
[2024-04-03 05:56] LABS: BLOOD UREA NITROGEN 13 MG/DL (9-23); CALCIUM LEVEL 8.3 MG/DL (8.3-10.6); CARBON DIOXIDE LEVEL 20 MMOL/L (20-31); CHLORIDE LEVEL 111 MMOL/L (98-107); GLOMERULAR FILTRATION RATE > 60.0 (>45); GLUCOSE, FASTING 103 MG/DL (74-106); POTASSIUM SERUM 3.8 MMOL/L (3.5-5.1); SODIUM LEVEL 142 MMOL/L (136-145)
[2024-04-03 08:00] VITALS: BP 137/81; TEMP 98.4; O2SAT 94
[2024-04-03 12:00] VITALS: BP 136/82; TEMP 98.1; O2SAT 92
[2024-04-03 15:53] VITALS: BP 132/80; TEMP 98.1; O2SAT 95
[2024-04-03 20:13] VITALS: BP 144/88; TEMP 98.8; O2SAT 96
[2024-04-03 23:56] VITALS: BP 141/86; TEMP 98.6; O2SAT 94
[2024-04-04 04:00] VITALS: BP_SYST 115; BP_SYST 136; BP_DIAS 74; BP_DIAS 82; TEMP 98.2; O2SAT 96
[2024-04-04 07:11] LABS: HEMATOCRIT 33.4 % (36.0-47.0); HEMOGLOBIN 11.4 g/dl (12.0-15.5); MEAN CORPUSCULAR HEMOGLOBIN 31.8 pg (27.0-33.0); MEAN CORPUSCULAR HGB CONC 34.1 g/dl (32.0-36.5); MEAN CORPUSCULAR VOLUME 93.3 fl (80.0-96.0); PLATELET COUNT, AUTOMATED 193 10^3/uL (150-450); RED BLOOD COUNT 3.58 10^6/uL (4.00-5.40); WHITE BLOOD COUNT 7.5 10^3/uL (4.0-10.0)
[2024-04-04 07:41] LABS: BLOOD UREA NITROGEN 15 MG/DL (9-23); CALCIUM LEVEL 8.3 MG/DL (8.3-10.6); CARBON DIOXIDE LEVEL 24 MMOL/L (20-31); CHLORIDE LEVEL 110 MMOL/L (98-107); CREATININE FOR GFR 0.81 MG/DL (0.55-1.30); GLOMERULAR FILTRATION RATE > 60.0 (>45); GLUCOSE, FASTING 94 MG/DL (74-106); POTASSIUM SERUM 3.8 MMOL/L (3.5-5.1); SODIUM LEVEL 141 MMOL/L (136-145)
[2024-04-04 08:00] VITALS: BP 118/77; TEMP 98.1; O2SAT 95
[2024-04-04 13:00] VITALS: BP 140/100; TEMP 98.6; O2SAT 95
[2024-04-04] MEDS: busPIRone 10 MG TAB PO SCH (15:19)
[2024-04-04 16:00] VITALS: BP 117/80; TEMP 97.9; O2SAT 95
[2024-04-04 20:52] LABS: MAGNESIUM LEVEL 1.6 MG/DL (1.8-2.4); PHOSPHORUS LEVEL 3.2 MG/DL (2.4-5.1)
[2024-04-04] MEDS: diphenhydrAMINE 50MG/ML VIAL IV ONE (21:50)
[2024-04-04] MEDS ORDERED: ISOVUE-370 76% 100ML VIAL As Ordered ONE (22:10)
[2024-04-04] MEDS: NS 500 ML IV ONE (22:29)
[2024-04-05] VITALS (9 sets, daily range): BP systolic 101–139; BP diastolic 68–93; TEMP 98.1–102.5; O2SAT 95–96
[2024-04-05] MEDS: MAG SULF 1GM/100ML (MAG RUN) 1 GM in IV 1 EA IV ONE ×2 (00:04→10:19)
[2024-04-05 01:04] LABS: THYROID STIMULATING HORMONE 4.263 uIU/ML (0.55-4.78)
[2024-04-05] MEDS: NS (Normal Saline) 0.9% 1,000 ML IV ONE (02:27)
[2024-04-05] MEDS: LR 1,000 ML IV SCH (04:24)
[2024-04-05] MEDS: METOPROLOL TART 12.5 MG PER 1/2 TAB PO ONE (04:25)
[2024-04-05 06:50] LABS: HEMATOCRIT 30.1 % (36.0-47.0); HEMOGLOBIN 10.1 g/dl (12.0-15.5); MEAN CORPUSCULAR HEMOGLOBIN 31.9 pg (27.0-33.0); MEAN CORPUSCULAR HGB CONC 33.6 g/dl (32.0-36.5); PLATELET COUNT, AUTOMATED 196 10^3/uL (150-450); RED BLOOD COUNT 3.17 10^6/uL (4.00-5.40); WHITE BLOOD COUNT 7.2 10^3/uL (4.0-10.0)
[2024-04-05 07:25] LABS: BLOOD UREA NITROGEN 15 MG/DL (9-23); CALCIUM LEVEL 7.6 MG/DL (8.3-10.6); CARBON DIOXIDE LEVEL 23 MMOL/L (20-31); CHLORIDE LEVEL 110 MMOL/L (98-107); GLOMERULAR FILTRATION RATE > 60.0 (>45); GLUCOSE, FASTING 91 MG/DL (74-106); MAGNESIUM LEVEL 1.8 MG/DL (1.8-2.4); PHOSPHORUS LEVEL 2.9 MG/DL (2.4-5.1); POTASSIUM SERUM 3.9 MMOL/L (3.5-5.1); SODIUM LEVEL 143 MMOL/L (136-145)
[2024-04-05 09:32] LABS: CK-MB VALUE MASS < 1.0 NG/ML (<3.6)
[2024-04-05 09:33] LABS: CPK CREATINE PHOSPHOKINASE 51 U/L (34-145); MB/CK RELATIVE INDEX 1.96 (< OR =4)
[2024-04-05] MEDS: HEPARIN SOD (PORCINE) 5000UNITS/ML 1ML VIAL/SYRINGE SQ SCH (09:35)
[2024-04-05] MEDS ORDERED: LEVALBUTEROL 1.25MG 0.5ML CONCENTRATE NEB INH PRN (09:55)
[2024-04-05] MEDS ORDERED: METOPROLOL TART 12.5 MG PER 1/2 TAB PO SCH ×2 (12:00→21:00)
[2024-04-05 12:18] LABS: CK-MB VALUE MASS < 1.0 NG/ML (<3.6)
[2024-04-05 12:19] LABS: ALBUMIN 1.8 G/DL (3.2-5.2); ALKALINE PHOSPHATASE 57 U/L (35-104); ALT/SGPT 13 U/L (7.0-40); AST/SGOT 17 U/L (<34); BILIRUBIN,DIRECT < 0.1 MG/DL (<0.4); BILIRUBIN,TOTAL 0.2 MG/DL (0.3-1.2); CPK CREATINE PHOSPHOKINASE 47 U/L (34-145); MB/CK RELATIVE INDEX 2.12 (< OR =4); TOTAL PROTEIN 4.8 G/DL (5.7-8.2)
[2024-04-05 12:24] LABS: BASO # 0.1 10^3/uL (0.0-0.2); BASO % 0.7 % (0.0-1.0); EOS # 0.1 10^3/uL (0.0-0.5); EOS % 1.5 % (0.0-3.0); LYMPH # 1.3 10^3/uL (1.5-5.0); LYMPH % 15.9 % (24.0-44.0); MONO # 0.7 10^3/uL (0.0-0.8); MONO % 8.8 % (2.0-8.0); NEUTROPHILS % 72.9 % (36.0-66.0)
[2024-04-05 12:49] LABS: C REACTIVE PROTEIN QUANTITATIV 21.95 MG/DL (<1.0)
[2024-04-05 12:56] LABS: PROCALCITONIN 0.24 ng/ml
[2024-04-05 13:21] LABS: KETONE, URINE AUTO RFX NEGATIVE (NEGATIVE); NITRITE, URINE AUTO RFX NEGATIVE (NEGATIVE); RBC, URINE AUTO RFX 6 /HPF (0-3); SQUAM EPITHELIAL CELL UR AURFX 6 /HPF (0-6)
[2024-04-05 13:23] LABS: LEUKOCYTE ESTERASE UR AUTO RFX 3+ (NEGATIVE); WBC, URINE AUTO RFX 29 /HPF (0-3)
[2024-04-05] MEDS: NS (Normal Saline) 0.9% 1,000 ML IV SCH (15:24)
[2024-04-05] MEDS: METOPROLOL TART 12.5 MG PER 1/2 TAB PO SCH (16:31)
[2024-04-05 21:38] LABS: MAGNESIUM LEVEL 1.9 MG/DL (1.8-2.4); POTASSIUM SERUM 3.8 MMOL/L (3.5-5.1)
[2024-04-06] VITALS (8 sets, daily range): BP systolic 104–152; BP diastolic 64–97; TEMP 98.2–101.2; O2SAT 94–98
[2024-04-06] MEDS: METOPROLOL TART 12.5 MG PER 1/2 TAB PO ONE (02:24)
[2024-04-06 05:49] LABS: BASO % 0.6 % (0.0-1.0); EOS # 0.2 10^3/uL (0.0-0.5); EOS % 2.8 % (0.0-3.0); HEMATOCRIT 29.6 % (36.0-47.0); HEMOGLOBIN 10.1 g/dl (12.0-15.5); LYMPH # 0.7 10^3/uL (1.5-5.0); LYMPH % 11.4 % (24.0-44.0); MEAN CORPUSCULAR HEMOGLOBIN 32.1 pg (27.0-33.0); MEAN CORPUSCULAR HGB CONC 34.1 g/dl (32.0-36.5); MONO # 0.5 10^3/uL (0.0-0.8); MONO % 8.5 % (2.0-8.0); NEUTROPHILS # 4.9 10^3/uL (1.5-8.5); NEUTROPHILS % 76.2 % (36.0-66.0); PLATELET COUNT, AUTOMATED 200 10^3/uL (150-450); RED BLOOD COUNT 3.15 10^6/uL (4.00-5.40); WHITE BLOOD COUNT 6.4 10^3/uL (4.0-10.0)
[2024-04-06 06:25] LABS: BLOOD UREA NITROGEN 14 MG/DL (9-23); CARBON DIOXIDE LEVEL 23 MMOL/L (20-31); CHLORIDE LEVEL 110 MMOL/L (98-107); CREATININE FOR GFR 0.64 MG/DL (0.55-1.30); GLOMERULAR FILTRATION RATE > 60.0 (>45); GLUCOSE, FASTING 93 MG/DL (74-106); MAGNESIUM LEVEL 1.9 MG/DL (1.8-2.4); POTASSIUM SERUM 3.8 MMOL/L (3.5-5.1); SODIUM LEVEL 142 MMOL/L (136-145)
[2024-04-06 06:28] LABS: CORTISOL AM 21.3 UG/DL (4.3-22.4)
[2024-04-06 06:31] LABS: THYROID STIMULATING HORMONE 4.719 uIU/ML (0.55-4.78)
[2024-04-06 06:32] LABS: FREE T4 0.96 NG/DL (0.89-1.76)
[2024-04-06] MEDS ORDERED: VANCOMYCIN HCL 500 MG in DEXTROSE 5% (D5W) MINI-BAG PLU 100 ML IV SCH (06:55)
[2024-04-06] MEDS ORDERED: MEROPENEM INJ 2 GM in NS 100 ML IV SCH (06:55)
[2024-04-06] MEDS: MEROPENEM INJ 1 GM in IV 1 EA IV SCH ×2 (07:47→08:40)
[2024-04-06] MEDS: VANCOMYCIN HCL 1,500 MG, VIAL MATE ADAPTER 1 EACH in NS 500 ML IV ONE (10:03)
[2024-04-06] MEDS: METOPROLOL TART 12.5 MG PER 1/2 TAB PO STA (17:42)
[2024-04-06] MEDS: SODIUM CHLORIDE 0.9% INJ 10 ML SYR IV SCH (17:49)
[2024-04-06] MEDS: VANCOMYCIN HCL 750 MG, VIAL MATE ADAPTER 1 EACH in NS 250 ML IV SCH (17:49)
[2024-04-07] VITALS (14 sets, daily range): BP systolic 101–148; BP diastolic 65–95; TEMP 96.9–101.3; O2SAT 90–99
[2024-04-07 03:32] LABS: MAGNESIUM LEVEL 1.7 MG/DL (1.8-2.4); POTASSIUM SERUM 4.2 MMOL/L (3.5-5.1)
[2024-04-07] MEDS: MAG SULF 1GM/100ML (MAG RUN) 1 GM in IV 1 EA IV SCH (03:53)
[2024-04-07] MEDS: IBUPROFEN 600MG TAB PO ONE (05:55)
[2024-04-07 07:41] LABS: BASO # 0.1 10^3/uL (0.0-0.2); BASO % 0.8 % (0.0-1.0); EOS # 0.2 10^3/uL (0.0-0.5); EOS % 3.4 % (0.0-3.0); HEMATOCRIT 32.1 % (36.0-47.0); HEMOGLOBIN 10.7 g/dl (12.0-15.5); LYMPH # 0.6 10^3/uL (1.5-5.0); LYMPH % 9.4 % (24.0-44.0); MEAN CORPUSCULAR HEMOGLOBIN 31.2 pg (27.0-33.0); MEAN CORPUSCULAR HGB CONC 33.3 g/dl (32.0-36.5); MEAN CORPUSCULAR VOLUME 93.6 fl (80.0-96.0); MONO # 0.4 10^3/uL (0.0-0.8); MONO % 6.9 % (2.0-8.0); NEUTROPHILS # 4.9 10^3/uL (1.5-8.5); NEUTROPHILS % 78.9 % (36.0-66.0); RED BLOOD COUNT 3.43 10^6/uL (4.00-5.40); WHITE BLOOD COUNT 6.3 10^3/uL (4.0-10.0)
[2024-04-07 07:58] LABS: VANCOMYCIN LEVEL TROUGH 15.3 UG/ML (10.0-20.0)
[2024-04-07 07:59] LABS: BLOOD UREA NITROGEN 10 MG/DL (9-23); C REACTIVE PROTEIN QUANTITATIV 18.67 MG/DL (<1.0); CALCIUM LEVEL 7.9 MG/DL (8.3-10.6); CARBON DIOXIDE LEVEL 23 MMOL/L (20-31); CHLORIDE LEVEL 110 MMOL/L (98-107); CREATININE FOR GFR 0.64 MG/DL (0.55-1.30); GLOMERULAR FILTRATION RATE > 60.0 (>45); GLUCOSE, FASTING 93 MG/DL (74-106); MAGNESIUM LEVEL 2.3 MG/DL (1.8-2.4); POTASSIUM SERUM 3.9 MMOL/L (3.5-5.1); SODIUM LEVEL 141 MMOL/L (136-145)
[2024-04-07 08:01] LABS: PLATELET COUNT, AUTOMATED 280 10^3/uL (150-450)
[2024-04-07] MEDS ORDERED: LIDOCAINE 1% MDV 20ML VIAL As Ordered ONE (11:16)
[2024-04-07] MEDS: NS (Normal Saline) 0.9% 1,000 ML IV SCH (11:40)
[2024-04-07] MEDS: PERCOCET 5MG/325MG TAB PO PRN (13:54)
[2024-04-08] VITALS (9 sets, daily range): BP systolic 103–132; BP diastolic 73–90; TEMP 96.9–101; O2SAT 92–95
[2024-04-08 07:43] LABS: BASO % 0.5 % (0.0-1.0); EOS # 0.2 10^3/uL (0.0-0.5); EOS % 2.6 % (0.0-3.0); HEMATOCRIT 33.8 % (36.0-47.0); HEMOGLOBIN 11.2 g/dl (12.0-15.5); LYMPH # 0.7 10^3/uL (1.5-5.0); LYMPH % 10.8 % (24.0-44.0); MEAN CORPUSCULAR HEMOGLOBIN 31.6 pg (27.0-33.0); MEAN CORPUSCULAR HGB CONC 33.1 g/dl (32.0-36.5); MEAN CORPUSCULAR VOLUME 95.5 fl (80.0-96.0); MONO # 0.4 10^3/uL (0.0-0.8); MONO % 5.8 % (2.0-8.0); NEUTROPHILS % 79.7 % (36.0-66.0); PLATELET COUNT, AUTOMATED 285 10^3/uL (150-450); RED BLOOD COUNT 3.54 10^6/uL (4.00-5.40); WHITE BLOOD COUNT 6.2 10^3/uL (4.0-10.0)
[2024-04-08 07:58] LABS: BLOOD UREA NITROGEN 11 MG/DL (9-23); C REACTIVE PROTEIN QUANTITATIV 17.88 MG/DL (<1.0); CALCIUM LEVEL 7.9 MG/DL (8.3-10.6); CARBON DIOXIDE LEVEL 24 MMOL/L (20-31); CHLORIDE LEVEL 111 MMOL/L (98-107); CREATININE FOR GFR 0.69 MG/DL (0.55-1.30); GLOMERULAR FILTRATION RATE > 60.0 (>45); GLUCOSE, FASTING 99 MG/DL (74-106); MAGNESIUM LEVEL 1.9 MG/DL (1.8-2.4); POTASSIUM SERUM 3.9 MMOL/L (3.5-5.1); SODIUM LEVEL 145 MMOL/L (136-145)
[2024-04-08] MEDS ORDERED: FLUCONAZOLE 100 MG TAB PO SCH ×2 (09:00→18:00)
[2024-04-08] MEDS: FLUCONAZOLE 100 MG TAB PO SCH (09:10)
[2024-04-08 09:37] LABS: VANCOMYCIN LEVEL TROUGH 16.8 UG/ML (10.0-20.0)
[2024-04-08] MEDS: FUROSEMIDE 20MG/2ML VIAL IV ONE (09:44)
[2024-04-08] MEDS: SODIUM CHLORIDE 0.9% INJ 10 ML SYR IV PRN (16:31)
[2024-04-09] VITALS (7 sets, daily range): BP systolic 102–130; BP diastolic 73–86; TEMP 97.1–99.4; O2SAT 92–96
[2024-04-09 05:55] LABS: BASO % 0.6 % (0.0-1.0); EOS # 0.2 10^3/uL (0.0-0.5); EOS % 3.6 % (0.0-3.0); HEMATOCRIT 32.2 % (36.0-47.0); HEMOGLOBIN 10.7 g/dl (12.0-15.5); LYMPH # 0.9 10^3/uL (1.5-5.0); LYMPH % 14.2 % (24.0-44.0); MEAN CORPUSCULAR HEMOGLOBIN 31.1 pg (27.0-33.0); MEAN CORPUSCULAR HGB CONC 33.2 g/dl (32.0-36.5); MEAN CORPUSCULAR VOLUME 93.6 fl (80.0-96.0); MONO # 0.4 10^3/uL (0.0-0.8); MONO % 6.2 % (2.0-8.0); NEUTROPHILS # 4.7 10^3/uL (1.5-8.5); NEUTROPHILS % 74.8 % (36.0-66.0); PLATELET COUNT, AUTOMATED 330 10^3/uL (150-450); RED BLOOD COUNT 3.44 10^6/uL (4.00-5.40); WHITE BLOOD COUNT 6.3 10^3/uL (4.0-10.0)
[2024-04-09 06:16] LABS: C REACTIVE PROTEIN QUANTITATIV 10.38 MG/DL (<1.0)
[2024-04-09 06:17] LABS: BLOOD UREA NITROGEN 11 MG/DL (9-23); CALCIUM LEVEL 8.2 MG/DL (8.3-10.6); CARBON DIOXIDE LEVEL 26 MMOL/L (20-31); CHLORIDE LEVEL 107 MMOL/L (98-107); CREATININE FOR GFR 0.69 MG/DL (0.55-1.30); GLOMERULAR FILTRATION RATE > 60.0 (>45); GLUCOSE, FASTING 82 MG/DL (74-106); MAGNESIUM LEVEL 1.8 MG/DL (1.8-2.4); POTASSIUM SERUM 4.1 MMOL/L (3.5-5.1); SODIUM LEVEL 144 MMOL/L (136-145)
[2024-04-10 04:00] VITALS: BP 114/78; TEMP 98.3; O2SAT 94
[2024-04-10 05:21] LABS: BASO % 0.7 % (0.0-1.0); EOS # 0.3 10^3/uL (0.0-0.5); EOS % 4.7 % (0.0-3.0); HEMATOCRIT 31.1 % (36.0-47.0); HEMOGLOBIN 10.4 g/dl (12.0-15.5); LYMPH # 1.1 10^3/uL (1.5-5.0); LYMPH % 19.3 % (24.0-44.0); MEAN CORPUSCULAR HEMOGLOBIN 31.1 pg (27.0-33.0); MEAN CORPUSCULAR HGB CONC 33.4 g/dl (32.0-36.5); MEAN CORPUSCULAR VOLUME 93.1 fl (80.0-96.0); MONO # 0.5 10^3/uL (0.0-0.8); NEUTROPHILS % 66.8 % (36.0-66.0); PLATELET COUNT, AUTOMATED 356 10^3/uL (150-450); RED BLOOD COUNT 3.34 10^6/uL (4.00-5.40); WHITE BLOOD COUNT 5.9 10^3/uL (4.0-10.0)
[2024-04-10 05:33] LABS: BLOOD UREA NITROGEN 8 MG/DL (9-23); C REACTIVE PROTEIN QUANTITATIV 8.13 MG/DL (<1.0); CALCIUM LEVEL 8.3 MG/DL (8.3-10.6); CARBON DIOXIDE LEVEL 28 MMOL/L (20-31); CHLORIDE LEVEL 108 MMOL/L (98-107); CREATININE FOR GFR 0.65 MG/DL (0.55-1.30); GLOMERULAR FILTRATION RATE > 60.0 (>45); GLUCOSE, FASTING 92 MG/DL (74-106); MAGNESIUM LEVEL 1.8 MG/DL (1.8-2.4); POTASSIUM SERUM 3.9 MMOL/L (3.5-5.1); SODIUM LEVEL 144 MMOL/L (136-145)
[2024-04-10 08:00] VITALS: BP 120/80; TEMP 99.1; O2SAT 94
[2024-04-10] MEDS: FUROSEMIDE 20MG/2ML VIAL IV ONE (09:56)
[2024-04-10 12:00] VITALS: BP 117/81; TEMP 96.7; O2SAT 96
[2024-04-10 16:00] VITALS: BP 121/79; TEMP 97.5; O2SAT 94
[2024-04-10 20:00] VITALS: BP 113/74; TEMP 97.7; O2SAT 95
[2024-04-11] VITALS: BP 107/71; TEMP 97.9; O2SAT 95
[2024-04-11 04:57] VITALS: BP 124/82; TEMP 97.3; O2SAT 92
[2024-04-11 05:00] VITALS: BP 124/82
[2024-04-11 06:06] LABS: BASO % 0.6 % (0.0-1.0); EOS # 0.3 10^3/uL (0.0-0.5); EOS % 4.2 % (0.0-3.0); HEMATOCRIT 30.8 % (36.0-47.0); LYMPH # 1.1 10^3/uL (1.5-5.0); LYMPH % 18.3 % (24.0-44.0); MEAN CORPUSCULAR HEMOGLOBIN 30.3 pg (27.0-33.0); MEAN CORPUSCULAR HGB CONC 32.5 g/dl (32.0-36.5); MEAN CORPUSCULAR VOLUME 93.3 fl (80.0-96.0); MONO # 0.4 10^3/uL (0.0-0.8); MONO % 7.1 % (2.0-8.0); NEUTROPHILS # 4.3 10^3/uL (1.5-8.5); NEUTROPHILS % 69.2 % (36.0-66.0); PLATELET COUNT, AUTOMATED 401 10^3/uL (150-450); WHITE BLOOD COUNT 6.2 10^3/uL (4.0-10.0)
[2024-04-11 06:23] LABS: BLOOD UREA NITROGEN 11 MG/DL (9-23); C REACTIVE PROTEIN QUANTITATIV 5.53 MG/DL (<1.0); CALCIUM LEVEL 8.5 MG/DL (8.3-10.6); CARBON DIOXIDE LEVEL 31 MMOL/L (20-31); CHLORIDE LEVEL 105 MMOL/L (98-107); CREATININE FOR GFR 0.73 MG/DL (0.55-1.30); GLOMERULAR FILTRATION RATE > 60.0 (>45); GLUCOSE, FASTING 90 MG/DL (74-106); MAGNESIUM LEVEL 1.9 MG/DL (1.8-2.4); POTASSIUM SERUM 3.8 MMOL/L (3.5-5.1); SODIUM LEVEL 143 MMOL/L (136-145)
[2024-04-11 08:00] VITALS: BP 126/82; TEMP 97.1; O2SAT 93
[2024-04-11] MEDS ORDERED: PERCOCET PO (10:31)
== END 2024-04-11 12:23 | disposition home or self-care (01) | DRG 221 ==
LOC: EEVIPCON 08:53 → M OR 08:53 → M MSPAV 21:08
PROVIDERS: ADMIT Surgery; ATTEND Surgery
PROC: 0D1 Gastrointestinal System, Bypass (ICD-10-PCS; 2024-03-30)
PROC: 0DBP4ZZ Excision of Rectum, Percutaneous Endoscopic Approach (ICD-10-PCS; principal; 2024-03-30 11:15)
PROC: B246ZZZ Ultrasonography of Right and Left Heart (ICD-10-PCS; 2024-04-05)
PROC: 0W9 Anatomical Regions, General, Drainage (ICD-10-PCS; 2024-04-07)
DX: Z43.3 Encounter for attention to colostomy (principal); A41.9 Sepsis, unspecified organism; I24.89 Other forms of acute ischemic heart disease; E83.42 Hypomagnesemia; K61.1 Rectal abscess; I73.00 Raynaud's syndrome without gangrene; F17.200 Nicotine dependence, unspecified, uncomplicated; K68.11 Postprocedural retroperitoneal abscess; R11.2 Nausea with vomiting, unspecified; E86.1 Hypovolemia; J98.11 Atelectasis; F41.1 Generalized anxiety disorder; Z90.49 Acquired absence of other specified parts of digestive tract; Z79.899 Other long term (current) drug therapy

== ENCOUNTER 2024-06-04 10:11 | Inpatient (IN) | payer OTHER ==
[~2024-06-04] VITALS: Ht 165.1 cm; Wt 73.3 kg
[~2024-06-04 10:11] MED LIST changes: +BENA25TA5 PO; -LIDOCAINE 2% 100MG/5ML SDV (FOR ANES.) As Ordered ONE; -ONDANSETRON 4MG 2ML VIAL As Ordered ONE; -ROCURONIUM BROMIDE 50MG/5ML VIAL As Ordered ONE; -SUGAMMADEX SODIUM 500 MG/5 ML VIAL (BRIDION) As Ordered ONE; -UNRESOLVED CLARIFICATION ENTRY XX SCH; -ceFAZolin SOD 2 GM in IV 1 EA IV ONE; -metroNIDAZOLE 500 MG in IV 1 EA IV ONE; -propofoL 200 MG/20 ML VIAL As Ordered ONE
[2024-06-04] MEDS ORDERED: DIPH1TAB81 (10:19)
[2024-06-04] MEDS ORDERED: CELE0.09 (10:19)
[2024-06-04 11:11] LABS: BASO # 0.1 10^3/uL (0.0-0.2); BASO % 0.5 % (0.0-1.0); EOS # 0.1 10^3/uL (0.0-0.5); EOS % 0.6 % (0.0-3.0); HEMATOCRIT 40.7 % (36.0-47.0); HEMOGLOBIN 13.6 g/dl (12.0-15.5); LYMPH # 1.5 10^3/uL (1.5-5.0); LYMPH % 9.7 % (24.0-44.0); MEAN CORPUSCULAR HEMOGLOBIN 30.5 pg (27.0-33.0); MEAN CORPUSCULAR HGB CONC 33.4 g/dl (32.0-36.5); MEAN CORPUSCULAR VOLUME 91.3 fl (80.0-96.0); MONO # 1.2 10^3/uL (0.0-0.8); NEUTROPHILS # 12.2 10^3/uL (1.5-8.5); NEUTROPHILS % 80.9 % (36.0-66.0); PLATELET COUNT, AUTOMATED 549 10^3/uL (150-450); RED BLOOD COUNT 4.46 10^6/uL (4.00-5.40)
[2024-06-04 11:34] LABS: ALBUMIN 2.8 G/DL (3.2-5.2); ALKALINE PHOSPHATASE 132 U/L (35-104); ALT/SGPT 12 U/L (7.0-40); AST/SGOT 12 U/L (<34); BILIRUBIN,DIRECT < 0.1 MG/DL (<0.4); BILIRUBIN,TOTAL 0.2 MG/DL (0.3-1.2); BLOOD UREA NITROGEN 21 MG/DL (9-23); CALCIUM LEVEL 9.3 MG/DL (8.3-10.6); CARBON DIOXIDE LEVEL 24 MMOL/L (20-31); CHLORIDE LEVEL 103 MMOL/L (98-107); CK-MB VALUE MASS < 1.0 NG/ML (<3.6); CREATININE FOR GFR 0.81 MG/DL (0.55-1.30); GLOMERULAR FILTRATION RATE > 60.0 (>45); GLUCOSE, FASTING 95 MG/DL (74-106); POTASSIUM SERUM 5.6 MMOL/L (3.5-5.1); SODIUM LEVEL 138 MMOL/L (136-145); TOTAL PROTEIN 7.4 G/DL (5.7-8.2)
[2024-06-04 11:35] LABS: THYROID STIMULATING HORMONE 2.038 uIU/ML (0.55-4.78)
[2024-06-04 11:36] LABS: CPK CREATINE PHOSPHOKINASE 25 U/L (34-145)
[2024-06-04] MEDS: ONDANSETRON 4MG 2ML VIAL IV ONE (13:20)
[2024-06-04] MEDS ORDERED: ISOVUE-370 76% 100ML VIAL As Ordered ONE (13:33)
[2024-06-04] MEDS: GASTROGRAFIN SOLUTION 30ML PO SCH (14:14)
[2024-06-04] MEDS ORDERED: ACET-907 PO (17:51)
[2024-06-04] MEDS ORDERED: HOME MED LIST COMPLETE! XX SCH (17:55)
[2024-06-04] MEDS: ERTAPENEM SODIUM 1 GM in NS MINI-BAG PLUS 50 ML IV ONE (18:38)
[2024-06-04] MEDS: ONDANSETRON 4MG 2ML VIAL IV PRN (19:53)
[2024-06-04] MEDS: LR 1,000 ML IV SCH (19:53)
[2024-06-04 21:00] LABS: PROCALCITONIN 0.36 ng/ml
[2024-06-04] MEDS: DOCUSATE SODIUM 100MG CAPSULE PO SCH (21:00)
[2024-06-04 21:06] VITALS: BP 113/77; TEMP 97.5; O2SAT 98
[2024-06-04 21:19] LABS: C REACTIVE PROTEIN QUANTITATIV 23.9 MG/DL (<1.0)
[2024-06-04] MEDS: NS (Normal Saline) 0.9% 1,000 ML IV SCH (21:33)
[2024-06-04] MEDS: busPIRone 10 MG TAB PO SCH (21:35)
[2024-06-04] MEDS: ACETAMINOPHEN 500 MG TAB PO SCH (21:35)
[2024-06-04] MEDS: PANTOPRAZOLE 40MG VIAL IV SCH (21:36)
[2024-06-05 04:10] VITALS: BP 112/76; TEMP 99.2; O2SAT 97
[2024-06-05 05:29] LABS: BASO # 0.1 10^3/uL (0.0-0.2); BASO % 0.8 % (0.0-1.0); EOS # 0.1 10^3/uL (0.0-0.5); EOS % 1.3 % (0.0-3.0); HEMATOCRIT 36.8 % (36.0-47.0); HEMOGLOBIN 12.2 g/dl (12.0-15.5); LYMPH # 1.3 10^3/uL (1.5-5.0); LYMPH % 12.6 % (24.0-44.0); MEAN CORPUSCULAR HEMOGLOBIN 30.4 pg (27.0-33.0); MEAN CORPUSCULAR HGB CONC 33.2 g/dl (32.0-36.5); MEAN CORPUSCULAR VOLUME 91.8 fl (80.0-96.0); MONO # 1.2 10^3/uL (0.0-0.8); MONO % 11.6 % (2.0-8.0); NEUTROPHILS # 7.8 10^3/uL (1.5-8.5); NEUTROPHILS % 73.4 % (36.0-66.0); PLATELET COUNT, AUTOMATED 471 10^3/uL (150-450); RED BLOOD COUNT 4.01 10^6/uL (4.00-5.40); WHITE BLOOD COUNT 10.7 10^3/uL (4.0-10.0)
[2024-06-05 05:43] LABS: BLOOD UREA NITROGEN 22 MG/DL (9-23); C REACTIVE PROTEIN QUANTITATIV 20.11 MG/DL (<1.0); CARBON DIOXIDE LEVEL 19 MMOL/L (20-31); CHLORIDE LEVEL 105 MMOL/L (98-107); CREATININE FOR GFR 0.81 MG/DL (0.55-1.30); GLOMERULAR FILTRATION RATE > 60.0 (>45); GLUCOSE, FASTING 67 MG/DL (74-106); POTASSIUM SERUM 4.6 MMOL/L (3.5-5.1); SODIUM LEVEL 139 MMOL/L (136-145)
[2024-06-05] MEDS: ENOXAPARIN 40MG/0.4ML SYRINGE (J1650 PER 10MG) SC SCH (10:00)
[2024-06-05 12:00] VITALS: BP_SYST 112; BP_SYST 98; BP_DIAS 60; BP_DIAS 64; TEMP 97.7; O2SAT 97
[2024-06-05] MEDS: ERTAPENEM SODIUM 1 GM in NS MINI-BAG PLUS 50 ML IV SCH (17:04)
[2024-06-05] MEDS: KETOROLAC 30 MG/ML 1ML VIAL IV PRN (17:28)
[2024-06-05 20:04] VITALS: BP 84/50; TEMP 97.9; O2SAT 94
[2024-06-05 21:11] VITALS: BP 88/48; TEMP 97.5; O2SAT 95
[2024-06-05 22:24] VITALS: BP 96/58; TEMP 97.5; O2SAT 94
[2024-06-06 04:31] VITALS: BP 100/62; TEMP 97.7; O2SAT 95
[2024-06-06 06:10] LABS: BASO % 0.4 % (0.0-1.0); EOS # 0.1 10^3/uL (0.0-0.5); EOS % 1.3 % (0.0-3.0); HEMATOCRIT 33.7 % (36.0-47.0); LYMPH % 10.1 % (24.0-44.0); MEAN CORPUSCULAR HEMOGLOBIN 29.7 pg (27.0-33.0); MEAN CORPUSCULAR HGB CONC 32.6 g/dl (32.0-36.5); MEAN CORPUSCULAR VOLUME 91.1 fl (80.0-96.0); MONO # 0.9 10^3/uL (0.0-0.8); MONO % 9.3 % (2.0-8.0); NEUTROPHILS # 7.5 10^3/uL (1.5-8.5); NEUTROPHILS % 78.5 % (36.0-66.0); PLATELET COUNT, AUTOMATED 420 10^3/uL (150-450); WHITE BLOOD COUNT 9.5 10^3/uL (4.0-10.0)
[2024-06-06 06:32] LABS: BLOOD UREA NITROGEN 20 MG/DL (9-23); C REACTIVE PROTEIN QUANTITATIV 13.31 MG/DL (<1.0); CALCIUM LEVEL 8.5 MG/DL (8.3-10.6); CARBON DIOXIDE LEVEL 23 MMOL/L (20-31); CHLORIDE LEVEL 107 MMOL/L (98-107); CREATININE FOR GFR 0.74 MG/DL (0.55-1.30); GLOMERULAR FILTRATION RATE > 60.0 (>45); GLUCOSE, FASTING 90 MG/DL (74-106); POTASSIUM SERUM 4.9 MMOL/L (3.5-5.1); SODIUM LEVEL 140 MMOL/L (136-145)
[2024-06-06 12:00] VITALS: BP 108/62; TEMP 97.3; O2SAT 97
[2024-06-06 19:34] VITALS: BP 104/62; TEMP 97.5; O2SAT 96
[2024-06-07] MEDS: traZODone 25MG PER 1/2 TABLET PO PRN (00:53)
[2024-06-07 03:52] VITALS: BP 102/58; TEMP 97.5; O2SAT 98
[2024-06-07 06:33] LABS: BASO % 0.4 % (0.0-1.0); EOS # 0.2 10^3/uL (0.0-0.5); EOS % 1.6 % (0.0-3.0); HEMATOCRIT 34.5 % (36.0-47.0); HEMOGLOBIN 11.4 g/dl (12.0-15.5); LYMPH # 1.3 10^3/uL (1.5-5.0); LYMPH % 13.6 % (24.0-44.0); MEAN CORPUSCULAR HEMOGLOBIN 30.4 pg (27.0-33.0); MONO # 0.8 10^3/uL (0.0-0.8); MONO % 8.9 % (2.0-8.0); NEUTROPHILS # 7.1 10^3/uL (1.5-8.5); NEUTROPHILS % 75.2 % (36.0-66.0); PLATELET COUNT, AUTOMATED 442 10^3/uL (150-450); RED BLOOD COUNT 3.75 10^6/uL (4.00-5.40); WHITE BLOOD COUNT 9.5 10^3/uL (4.0-10.0)
[2024-06-07 07:04] LABS: BLOOD UREA NITROGEN 18 MG/DL (9-23); CALCIUM LEVEL 8.9 MG/DL (8.3-10.6); CARBON DIOXIDE LEVEL 24 MMOL/L (20-31); CHLORIDE LEVEL 110 MMOL/L (98-107); CREATININE FOR GFR 0.73 MG/DL (0.55-1.30); GLOMERULAR FILTRATION RATE > 60.0 (>45); GLUCOSE, FASTING 87 MG/DL (74-106); POTASSIUM SERUM 4.9 MMOL/L (3.5-5.1); SODIUM LEVEL 144 MMOL/L (136-145)
[2024-06-07 08:41] LABS: C REACTIVE PROTEIN QUANTITATIV 9.33 MG/DL (<1.0)
[2024-06-07 12:00] VITALS: BP 102/56; TEMP 98.2; O2SAT 96
[2024-06-07 20:10] VITALS: BP 110/70; TEMP 97.5; O2SAT 96
[2024-06-08 03:10] VITALS: BP 107/69; TEMP 97.7; O2SAT 96
[2024-06-08 05:13] LABS: BASO # 0.1 10^3/uL (0.0-0.2); BASO % 0.6 % (0.0-1.0); EOS # 0.1 10^3/uL (0.0-0.5); EOS % 1.5 % (0.0-3.0); HEMATOCRIT 38.2 % (36.0-47.0); HEMOGLOBIN 12.2 g/dl (12.0-15.5); LYMPH # 1.7 10^3/uL (1.5-5.0); LYMPH % 18.9 % (24.0-44.0); MEAN CORPUSCULAR HEMOGLOBIN 29.9 pg (27.0-33.0); MEAN CORPUSCULAR HGB CONC 31.9 g/dl (32.0-36.5); MEAN CORPUSCULAR VOLUME 93.6 fl (80.0-96.0); MONO # 0.8 10^3/uL (0.0-0.8); MONO % 9.2 % (2.0-8.0); NEUTROPHILS # 6.3 10^3/uL (1.5-8.5); NEUTROPHILS % 69.2 % (36.0-66.0); PLATELET COUNT, AUTOMATED 426 10^3/uL (150-450); RED BLOOD COUNT 4.08 10^6/uL (4.00-5.40); WHITE BLOOD COUNT 9.1 10^3/uL (4.0-10.0)
[2024-06-08 05:38] LABS: C REACTIVE PROTEIN QUANTITATIV 7.55 MG/DL (<1.0)
[2024-06-08 05:41] LABS: BLOOD UREA NITROGEN 19 MG/DL (9-23); CALCIUM LEVEL 9.1 MG/DL (8.3-10.6); CARBON DIOXIDE LEVEL 23 MMOL/L (20-31); CHLORIDE LEVEL 111 MMOL/L (98-107); CREATININE FOR GFR 0.72 MG/DL (0.55-1.30); GLOMERULAR FILTRATION RATE > 60.0 (>45); GLUCOSE, FASTING 86 MG/DL (74-106); POTASSIUM SERUM 5.7 MMOL/L (3.5-5.1); SODIUM LEVEL 144 MMOL/L (136-145)
[2024-06-08] MEDS ORDERED: GASTROGRAFIN SOLUTION 30ML As Ordered ONE (10:11)
[2024-06-08 12:00] VITALS: BP 111/72; TEMP 97.2; O2SAT 97
[2024-06-08] MEDS: FLUCONAZOLE 50MG TABLET PO SCH (13:37)
[2024-06-08 20:20] VITALS: BP 93/66; TEMP 97.9; O2SAT 96
[2024-06-09] VITALS (7 sets, daily range): BP systolic 100–112; BP diastolic 68–73; TEMP 97–98.1; O2SAT 95–98
[2024-06-09 05:30] LABS: BASO # 0.1 10^3/uL (0.0-0.2); BASO % 0.7 % (0.0-1.0); EOS # 0.2 10^3/uL (0.0-0.5); EOS % 1.8 % (0.0-3.0); HEMATOCRIT 38.4 % (36.0-47.0); HEMOGLOBIN 12.3 g/dl (12.0-15.5); LYMPH % 21.7 % (24.0-44.0); MEAN CORPUSCULAR HEMOGLOBIN 29.5 pg (27.0-33.0); MEAN CORPUSCULAR VOLUME 92.1 fl (80.0-96.0); MONO # 0.8 10^3/uL (0.0-0.8); MONO % 8.4 % (2.0-8.0); NEUTROPHILS # 6.2 10^3/uL (1.5-8.5); PLATELET COUNT, AUTOMATED 505 10^3/uL (150-450); RED BLOOD COUNT 4.17 10^6/uL (4.00-5.40); WHITE BLOOD COUNT 9.2 10^3/uL (4.0-10.0)
[2024-06-09 05:52] LABS: BLOOD UREA NITROGEN 22 MG/DL (9-23); CALCIUM LEVEL 9.1 MG/DL (8.3-10.6); CARBON DIOXIDE LEVEL 24 MMOL/L (20-31); CHLORIDE LEVEL 110 MMOL/L (98-107); CREATININE FOR GFR 0.82 MG/DL (0.55-1.30); GLOMERULAR FILTRATION RATE > 60.0 (>45); GLUCOSE, FASTING 86 MG/DL (74-106); POTASSIUM SERUM 4.9 MMOL/L (3.5-5.1); SODIUM LEVEL 145 MMOL/L (136-145)
[2024-06-09] MEDS ORDERED: LIDOCAINE 1% MDV 20ML VIAL As Ordered ONE (11:03)
[2024-06-09] MEDS: MORPHINE 2 MG/ML 1ML VIAL IV ONE ×2 (15:40→17:03)
[2024-06-09] MEDS: FLUCONAZOLE 100 MG TAB PO SCH (17:59)
[2024-06-09] MEDS ORDERED: SENNA 8.6 MG TAB (SENOKOT) PO PRN (19:25)
[2024-06-09] MEDS ORDERED: PERCOCET 5MG/325MG TAB PO PRN (19:25)
[2024-06-09] MEDS: PERCOCET 5MG/325MG TAB PO PRN (20:59)
[2024-06-10 03:56] VITALS: BP 109/70; TEMP 97.7; O2SAT 98
[2024-06-10 05:04] LABS: BASO # 0.1 10^3/uL (0.0-0.2); BASO % 0.5 % (0.0-1.0); EOS # 0.2 10^3/uL (0.0-0.5); EOS % 1.7 % (0.0-3.0); HEMATOCRIT 34.8 % (36.0-47.0); HEMOGLOBIN 11.3 g/dl (12.0-15.5); LYMPH # 1.6 10^3/uL (1.5-5.0); LYMPH % 17.4 % (24.0-44.0); MEAN CORPUSCULAR HEMOGLOBIN 30.2 pg (27.0-33.0); MEAN CORPUSCULAR HGB CONC 32.5 g/dl (32.0-36.5); MONO # 0.7 10^3/uL (0.0-0.8); MONO % 7.8 % (2.0-8.0); NEUTROPHILS # 6.6 10^3/uL (1.5-8.5); NEUTROPHILS % 72.2 % (36.0-66.0); PLATELET COUNT, AUTOMATED 425 10^3/uL (150-450); RED BLOOD COUNT 3.74 10^6/uL (4.00-5.40); WHITE BLOOD COUNT 9.2 10^3/uL (4.0-10.0)
[2024-06-10 05:26] LABS: ALBUMIN 2.3 G/DL (3.2-5.2); ALKALINE PHOSPHATASE 92 U/L (35-104); ALT/SGPT 14 U/L (7.0-40); AST/SGOT 15 U/L (<34); BILIRUBIN,TOTAL < 0.2 MG/DL (0.3-1.2); BLOOD UREA NITROGEN 25 MG/DL (9-23); CALCIUM LEVEL 8.7 MG/DL (8.3-10.6); CARBON DIOXIDE LEVEL 25 MMOL/L (20-31); CHLORIDE LEVEL 109 MMOL/L (98-107); CREATININE FOR GFR 0.74 MG/DL (0.55-1.30); GLOMERULAR FILTRATION RATE > 60.0 (>45); GLUCOSE, FASTING 87 MG/DL (74-106); POTASSIUM SERUM 4.9 MMOL/L (3.5-5.1); SODIUM LEVEL 142 MMOL/L (136-145); TOTAL PROTEIN 6.1 G/DL (5.7-8.2)
[2024-06-10] MEDS: PANTOPRAZOLE 40MG TAB (PROTONIX) PO SCH (08:15)
[2024-06-10 12:00] VITALS: BP 96/61; TEMP 98.1; O2SAT 95
[2024-06-10 20:29] VITALS: BP 96/61; TEMP 97.7; O2SAT 96
[2024-06-11 04:30] VITALS: BP 103/68; TEMP 97.5; O2SAT 95
[2024-06-11 05:08] LABS: BASO # 0.1 10^3/uL (0.0-0.2); BASO % 0.6 % (0.0-1.0); EOS # 0.2 10^3/uL (0.0-0.5); HEMATOCRIT 34.9 % (36.0-47.0); HEMOGLOBIN 11.3 g/dl (12.0-15.5); LYMPH # 1.9 10^3/uL (1.5-5.0); LYMPH % 19.4 % (24.0-44.0); MEAN CORPUSCULAR HEMOGLOBIN 30.1 pg (27.0-33.0); MEAN CORPUSCULAR HGB CONC 32.4 g/dl (32.0-36.5); MEAN CORPUSCULAR VOLUME 93.1 fl (80.0-96.0); MONO # 0.8 10^3/uL (0.0-0.8); MONO % 8.1 % (2.0-8.0); NEUTROPHILS # 6.8 10^3/uL (1.5-8.5); NEUTROPHILS % 69.6 % (36.0-66.0); PLATELET COUNT, AUTOMATED 421 10^3/uL (150-450); RED BLOOD COUNT 3.75 10^6/uL (4.00-5.40); WHITE BLOOD COUNT 9.8 10^3/uL (4.0-10.0)
[2024-06-11 05:36] LABS: ALBUMIN 2.4 G/DL (3.2-5.2); ALKALINE PHOSPHATASE 98 U/L (35-104); ALT/SGPT 16 U/L (7.0-40); AST/SGOT 24 U/L (<34); BILIRUBIN,TOTAL < 0.2 MG/DL (0.3-1.2); BLOOD UREA NITROGEN 18 MG/DL (9-23); CALCIUM LEVEL 8.6 MG/DL (8.3-10.6); CARBON DIOXIDE LEVEL 25 MMOL/L (20-31); CHLORIDE LEVEL 106 MMOL/L (98-107); GLOMERULAR FILTRATION RATE > 60.0 (>45); GLUCOSE, FASTING 81 MG/DL (74-106); POTASSIUM SERUM 5.2 MMOL/L (3.5-5.1); SODIUM LEVEL 142 MMOL/L (136-145); TOTAL PROTEIN 6.3 G/DL (5.7-8.2)
[2024-06-11 11:55] VITALS: BP 102/68; TEMP 97.2; O2SAT 97
[2024-06-11] MEDS ORDERED: ACID1CAP5 PO (17:02)
[2024-06-11] MEDS ORDERED: METR-265 PO (17:02)
[2024-06-11] MEDS ORDERED: AMOX875T2 PO (17:02)
[2024-06-11] MEDS ORDERED: SENO8.6T5 PO (17:02)
[2024-06-11] MEDS ORDERED: COLA100C5 PO (17:02)
== END 2024-06-11 17:48 | disposition home or self-care (01) | DRG 721 ==
LOC: M ED 10:11 → M ED INP 17:46 → M MSPAV 21:00
PROVIDERS: ADMIT Internal Medicine Nephrology; ATTEND Internal Medicine
PROC: 0W9G30Z Drainage of Peritoneal Cavity with Drainage Device, Percutaneous Approach (ICD-10-PCS; principal; 2024-06-09 12:00)
DX: K68.11 Postprocedural retroperitoneal abscess (principal); E87.5 Hyperkalemia; I73.00 Raynaud's syndrome without gangrene; F10.10 Alcohol abuse, uncomplicated; F17.200 Nicotine dependence, unspecified, uncomplicated; E86.0 Dehydration; K43.5 Parastomal hernia without obstruction or gangrene; Z93.2 Ileostomy status; Y83.1 Surgical operation with implant of artificial internal device as the cause of abnormal reaction of the patient, or of later complication, without mention of misadventure at the time of the procedure; Z90.49 Acquired absence of other specified parts of digestive tract; Z79.899 Other long term (current) drug therapy

== ENCOUNTER → 2024-06-18 | Outpatient (CLI) | payer OTHER ==
[~2024-06-18] MED LIST changes: +ACET-907 PO; +ACID1CAP5 PO; +AMOX875T2 PO; +CELE0.09; +COLA100C5 PO; +DIPH1TAB81; +ISOVUE-370 76% 100ML VIAL As Ordered ONE; +METR-265 PO; +SENO8.6T5 PO
== END ==
LOC: M RAD 15:36
PROVIDERS: ATTEND Nurse Practitioner Adult Health
DX: R06.02 Shortness of breath (principal); R00.0 Tachycardia, unspecified
CPT/HCPCS: 71275; Q9967

== ENCOUNTER → 2024-06-22 | Outpatient (CLI) | payer OTHER | LOC: M RAD 11:37 | PROVIDERS: ATTEND Nurse Practitioner Adult Health | DX: K57.20 Diverticulitis of large intestine with perforation and abscess without bleeding (principal); Z93.3 Colostomy status | CPT/HCPCS: 74177; Q9967 ==

== ENCOUNTER → 2024-06-30 | Outpatient (REF) | payer OTHER ==
[~2024-06-30] MED LIST changes: -ISOVUE-370 76% 100ML VIAL As Ordered ONE
[2024-06-30 17:06] LABS: C REACTIVE PROTEIN QUANTITATIV < 0.50 MG/DL (<1.0); IRON (FE) 132 UG/DL (50-170)
[2024-06-30 17:09] LABS: FERRITIN 186.9 NG/ML (7.3-270.7)
== END ==
LOC: M LAB REF 12:24
PROVIDERS: ATTEND Nurse Practitioner Adult Health
DX: R00.0 Tachycardia, unspecified (principal); R06.02 Shortness of breath; M79.672 Pain in left foot; E83.110 Hereditary hemochromatosis

== ENCOUNTER → 2024-07-13 | Outpatient (REF) | payer OTHER | LOC: M LAB REF 12:22 | PROVIDERS: ATTEND Nurse Practitioner Adult Health | DX: R00.0 Tachycardia, unspecified (principal) ==

== ENCOUNTER → 2024-08-27 | Outpatient (REF) | payer OTHER ==
[2024-08-27 18:33] LABS: CALCIUM LEVEL 9.3 MG/DL (8.3-10.6); CREATININE FOR GFR 1.19 MG/DL (0.55-1.30); POTASSIUM SERUM 5.6 MMOL/L (3.5-5.1)
== END ==
LOC: M LABDRWAD 17:03
PROVIDERS: ATTEND Nurse Practitioner Adult Health
DX: I50.42 Chronic combined systolic (congestive) and diastolic (congestive) heart failure (principal)

== ENCOUNTER → 2024-09-03 | Outpatient (CLI) | payer OTHER ==
[2024-09-03 10:15] VITALS: BP 90/58; TEMP 98.8; O2SAT 100
[2024-09-03] MEDS: ISOVUE-300 61% 100ML VIAL IV SCH (11:19)
[2024-09-03] MEDS: LIDOCAINE 1% MDV 20ML VIAL SC SCH (11:20)
[2024-09-03] MEDS: SODIUM CHLORIDE 0.9% 1000 ML XX SCH (11:20)
== END ==
LOC: M IRPRO 10:03
PROVIDERS: ATTEND Surgery
DX: K91.89 Other postprocedural complications and disorders of digestive system (principal); K57.20 Diverticulitis of large intestine with perforation and abscess without bleeding
CPT/HCPCS: 49424; 76080; Q9967

== ENCOUNTER 2024-10-29 16:38 | Emergency (ER) | payer OTHER ==
[~2024-10-29] VITALS: Ht 165.1 cm; Wt 77.2 kg
[2024-10-29] MEDS ORDERED: METO1TAB33 PO (17:21)
[2024-10-29] MEDS ORDERED: CLOP75TA2 PO (17:21)
[2024-10-29] MEDS ORDERED: ATOR1TAB21 PO (17:21)
[2024-10-30 01:23] LABS: BASO # 0.1 10^3/uL (0.0-0.2); BASO % 0.6 % (0.0-1.0); EOS # 0.2 10^3/uL (0.0-0.5); EOS % 2.9 % (0.0-3.0); LYMPH # 1.8 10^3/uL (1.5-5.0); LYMPH % 22.8 % (24.0-44.0); MONO # 0.7 10^3/uL (0.0-0.8); MONO % 8.8 % (2.0-8.0); NEUTROPHILS # 5.1 10^3/uL (1.5-8.5); NEUTROPHILS % 64.4 % (36.0-66.0); PLATELET COUNT, AUTOMATED 270 10^3/uL (150-450)
[2024-10-30 01:46] LABS: ALT/SGPT 42.0 U/L (7.0-40); AST/SGOT 27.0 U/L (<34); CALCIUM LEVEL 9.5 MG/DL (8.3-10.6); CARBON DIOXIDE LEVEL 23.0 MMOL/L (20-31); CHLORIDE LEVEL 111.0 MMOL/L (98-107); CREATININE FOR GFR 0.78 MG/DL (0.55-1.30); GLOMERULAR FILTRATION RATE 85.8 (>45); POTASSIUM SERUM 5.4 MMOL/L (3.5-5.1); SODIUM LEVEL 143.0 MMOL/L (136-145)
[2024-10-30] MEDS ORDERED: ISOVUE-370 76% 100 ML VIAL As Ordered ONE (05:33)
[2024-10-30] MEDS: NS (Normal Saline) 0.9% 1,000 ML IV ONE (07:34)
[2024-10-30] MEDS ORDERED: AMOX875T2 PO (08:56)
[2024-10-30] MEDS ORDERED: PERC5TAB12 PO (09:06)
[2024-10-30] MEDS: AUGMENTIN 875 MG TAB PO ONE (09:13)
[2024-10-30 09:16] VITALS: BP 119/77; TEMP 97.2; O2SAT 99
== END 2024-10-30 09:20 | disposition home or self-care (01) ==
LOC: M ED 16:38
DX: R10.2 Pelvic and perineal pain (principal); I25.119 Atherosclerotic heart disease of native coronary artery with unspecified angina pectoris; I25.2 Old myocardial infarction; I10 Essential (primary) hypertension; F41.9 Anxiety disorder, unspecified; F17.210 Nicotine dependence, cigarettes, uncomplicated; Z79.1 Long term (current) use of non-steroidal anti-inflammatories (NSAID); Z79.2 Long term (current) use of antibiotics; Z79.899 Other long term (current) drug therapy
CPT/HCPCS: 36415; 74177; 80053; 85025; 87070; 99284; Q9967

== ENCOUNTER → 2024-11-26 | Outpatient (CLI) | payer OTHER ==
[~2024-11-26] MED LIST changes: +ATOR1TAB21 PO; +CLOP75TA2 PO; +METO1TAB33 PO; +PERC5TAB12 PO; +SENN-225 PO; -SENO8.6T5 PO
== END ==
LOC: M RAD 12:27
PROVIDERS: ATTEND Nurse Practitioner Adult Health
DX: Z87.442 Personal history of urinary calculi (principal)

== ENCOUNTER → 2024-12-02 | Outpatient (CLI) | payer OTHER ==
[2024-12-02] MEDS: LIDOCAINE 1% MDV 20 ML VIAL SC ONE (10:05)
[2024-12-02] MEDS: ISOVUE-300 61% 100 ML VIAL IV ONE (10:05)
[2024-12-02 10:07] VITALS: BP 125/79; TEMP 97.1; O2SAT 99
== END ==
LOC: M IRPRO 09:46
PROVIDERS: ATTEND Radiology Diagnostic Radiology
DX: K57.20 Diverticulitis of large intestine with perforation and abscess without bleeding (principal)
CPT/HCPCS: 49424; 76080; Q9967

== ENCOUNTER → 2024-12-02 | Outpatient (CLI) | payer OTHER ==
[2024-12-02 11:28] LABS: BASO # 0.1 10^3/uL (0.0-0.2); BASO % 0.7 % (0.0-1.0); EOS # 0.1 10^3/uL (0.0-0.5); EOS % 1.4 % (0.0-3.0); LYMPH # 1.6 10^3/uL (1.5-5.0); LYMPH % 22.2 % (24.0-44.0); MONO # 0.7 10^3/uL (0.0-0.8); MONO % 9.4 % (2.0-8.0); NEUTROPHILS # 4.7 10^3/uL (1.5-8.5); NEUTROPHILS % 65.9 % (36.0-66.0); PLATELET COUNT, AUTOMATED 250 10^3/uL (150-450)
[2024-12-02 11:56] LABS: ALT/SGPT 42 U/L (7.0-40); AST/SGOT 40 U/L (<34); C REACTIVE PROTEIN QUANTITATIV < 0.50 MG/DL (<1.0); CALCIUM LEVEL 9.3 MG/DL (8.3-10.6); CARBON DIOXIDE LEVEL 23 MMOL/L (20-31); CHLORIDE LEVEL 110 MMOL/L (98-107); CREATININE FOR GFR 0.97 MG/DL (0.55-1.30); GLOMERULAR FILTRATION RATE 66.1 (>45); POTASSIUM SERUM 4.9 MMOL/L (3.5-5.1); SODIUM LEVEL 142 MMOL/L (136-145)
== END ==
LOC: M LAB 09:48
PROVIDERS: ATTEND Internal Medicine Infectious Disease
DX: K65.1 Peritoneal abscess (principal)

== ENCOUNTER → 2024-12-16 | Outpatient (CLI) | payer OTHER | LOC: M IRPRO 09:44 | PROVIDERS: ATTEND Radiology Diagnostic Radiology | DX: K65.1 Peritoneal abscess (principal); Z53.9 Procedure and treatment not carried out, unspecified reason ==

== ENCOUNTER → 2024-12-16 | Outpatient (CLI) | payer OTHER ==
[~2024-12-16] MED LIST changes: +ISOVUE-370 76% 100 ML VIAL As Ordered ONE
== END ==
LOC: M RAD 09:41
PROVIDERS: ATTEND Registered Nurse School
DX: K65.1 Peritoneal abscess (principal); J98.11 Atelectasis; R91.1 Solitary pulmonary nodule
CPT/HCPCS: 74177; Q9967

== ENCOUNTER → 2024-12-22 | Outpatient (REF) | payer OTHER ==
[~2024-12-22] MED LIST changes: -ISOVUE-370 76% 100 ML VIAL As Ordered ONE
== END ==
LOC: M LAB REF 11:41
PROVIDERS: ATTEND Nurse Practitioner Adult Health
DX: R30.0 Dysuria (principal)